=== PATIENT | female | born 1940 | race Caucasian/White ===

== ENCOUNTER 2016-07-20 09:04 | Emergency (ER) | payer BC ==
[~2016-07-20] VITALS: Ht 162.6 cm; Wt 62.0 kg
[~2016-07-20 09:04] MED LIST: VITAMINS
[2016-07-20 09:12] VITALS: TEMP 36.7; Ht 162.6 cm; Wt 62.0 kg
[2016-07-20] MEDS ORDERED: SODIUM CHLORIDE 0.9% 1000ML 250 ML IV STA (09:30)
[2016-07-20] MEDS ORDERED: SODIUM CHLORIDE 0.9% 1000ML 1,000 ML IV STA (09:30)
[2016-07-20] MEDS ORDERED: OPTIRAY 320 IV PRN (09:45)
[2016-07-20] MEDS ORDERED: MULTTAB58 PO (09:55)
--- NOTE | 2016-07-20 10:15 | EMERGENCY ROOM VISIT NOTE ---
History Report prepared by Lisa: Jet Mccollum Under the Supervision of: Dr. Teja Krueger M.D. First contact with patient: 09:22 Chief Complaint: SYNCOPE Stated Complaint: BACK INJURY-PAIN ON LEFT SIDE Nursing Triage Summary: Triage note: pt presents to triage via wheelchair. pt reports she she fell last night at approx 2230. pt reports "i don't know how i fell." pt reports left posterior rib pain. pt reports "i was standing up brushing my teeth and next thing i know i was in bed with an ice pack." female visitor with friend reports that pt has been confused since fall. pt answering all questions correctly in triage. History of Present Illness The patient is a 75 year old female who presents to the Emergency Room with complaints of persistent back pain that started 12 hours ago. The patient notes that she felt more fatigued than normal last night and went to bed early. The patient got up to brush her teeth when she fell down. Her friend heard a crash and went to check on her. She found her on the floor and the patient was confused. The patient doesn't remember the fall or why she fell. The patient's friend was able to get her up and back to bed. She complained of back pain and her friend noticed a scrape on her back. She denies chest pain, shortness of breath, numbness, weakness, dark or bloody stools, headache, abdominal pain or hip pain. Source of History: patient, friend Onset: 12 hours ago Position: back Timing: other (persistent) Associated Symptoms: + fatigue, No SOB, No abdominal pain, No chest pain, No headache, No numbness, No weakness Note: Other associated symptoms: confused and doesn't remember falling Denies: dark or bloody stools, hip pain Review of Systems See HPI for pertinent positives & negatives. A total of 10 systems reviewed and were otherwise negative. Past Medical & Surgical Surgical Problems: (1) H/O removal of cyst Old medical records were reviewed. Nurse's notes were reviewed and I agree with. Family History FHx: cancer Social History Smoking Status: Never Smoker Alcohol Use: none Housing Status: lives with friends Occupation Status: unemployed Current/Historical Medications Scheduled Multiple Vitamin (Multivitamin), 1 TAB PO DAILY Allergies Coded Allergies: No Known Allergies (Unverified , 07/20/16) Physical Exam Vital Signs Date Time Temp Pulse Resp B/P Pulse Ox O2 Delivery O2 Flow Rate FiO2 07/20/16 11:59 65 18 119/66 98 07/20/16 10:50 60 18 119/70 96 Room Air 07/20/16 10:04 61 07/20/16 09:12 36.7 64 18 105/67 95 Room Air Physical Exam General: Older female who appears in no acute distress complaining of left flank pain. HEENT: Normal cephalic atraumatic. Pupils are equal round and reactive to light. Sclerae anicteric. Extraocular movements are intact. Oropharynx is pink with moist mucous membranes. No swelling of the mouth lips or tongue. Neck: Supple with a midline trachea. No meningeal signs or stiffness, no JVD or bruits. No Stridor. Chest: Clear to auscultation bilaterally. No wheezes or rhonchi. No increased work of breathing. Heart: regular rate and rhythm. Abdomen: Soft nontender, nondistended without rebound guarding or rigidity. Extremities: No cyanosis clubbing or edema. No calf tenderness or assymetry Spine/Back. Tenderness to palpation to left flank along lower ribs, bruise is noted. Skin: Good turgor without rashes. Neurologic exam: Cranial nerves two through 12 are intact. Motor and sensation are intact and symmetrical throughout. Medical Decision & Procedures ER Provider Diagnostic Interpretation: Radiology results as stated below per my review and radiologist interpretation: CT HEAD WITHOUT CONTRAST (CT) CLINICAL HISTORY: Head trauma. Head pain COMPARISON STUDY: No previous studies for comparison. TECHNIQUE: Axial CT of the brain is performed from the vertex to the skull base. IV contrast was not administered for this examination. CT DOSE: 638.56 mGycm FINDINGS: No intra or extra-axial mass lesions are visualized. There is no CT evidence of acute cortical infarction. There is no evidence of midline shift. There is no acute hemorrhage. No calvarial fractures are visualized. There are patchy white matter hypodensities likely on a small vessel basis. There is no evidence of pathologic ventricular dilatation. There is no evidence of acute sinusitis. 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 IMPRESSION: No acute intracranial findings Electronically signed by: Mark Harris M.D. 07/20/2016 10:59 AM Dictated Date/Time: 07/20/2016 10:[address] SCAN OF THE CHEST WITH IV CONTRAST CLINICAL HISTORY: Trauma. Recent fall. COMPARISON STUDY: Chest x-ray dated 10/03/2005. TECHNIQUE: Following the IV administration of 93 cc of Optiray 320, CT scan of the thorax was performed from the thoracic inlet to the upper abdomen. Images are reviewed in the axial, sagittal, and coronal planes. IV contrast was administered without complication. The examination is degraded by streak artifact from the left arm which could not be elevated above the chest. CT DOSE: 592.94 mGycm FINDINGS: Thyroid: Imaged portions of the thyroid gland are normal in size and attenuation. Thoracic aorta: The thoracic aorta is normal in caliber and demonstrates standard 3-vessel arch anatomy. No dissection is seen. There is mild stenosis in the left subclavian artery. Pulmonary vasculature: The pulmonary trunk is normal in caliber. There are no filling defects identified in the central pulmonary vessels to indicate pulmonary embolus. Note that this examination was not protocoled for evaluation of the pulmonary arteries. Heart: The heart is top normal in size and configuration, and without pericardial effusion. Lungs and pleural spaces: Evaluation of the lung parenchyma is modestly degraded by motion artifact. There is no airspace consolidation, pleural effusion, or pneumothorax. Dependent atelectasis is observed. The trachea and central airways are clear. There are scattered calcified granulomas. A 3 mm pleural-based nodule in the right middle lobe as seen on image #194. Mediastinum: There is no mediastinal hematoma or lymphadenopathy. Marian: Clear. Axillae: There is no axillary lymphadenopathy. Upper abdomen: A 2 cm cyst is noted in the right lobe of the liver. A tiny hiatal hernia is identified. Partially visualized upper abdominal viscera is otherwise within normal limits. See report of abdominal CT performed concurrently for detailed intra-abdominal findings. Skeletal structures: The Skeletal structures are osteopenic. Mild degenerative change is noted throughout the thoracic spine. The bony thorax appears intact. No lytic or blastic bony lesions are seen. IMPRESSION: 1. There is no acute posttraumatic intrathoracic body. 2. There is no airspace consolidation or pleural effusion. 3. There is a 3 mm pleural-based nodule in the right middle lobe. This is pathologically indeterminant but of low suspicion and can be followed if clinically warranted. See below. 4. Additional findings as above. Please refer to below summary of Fleischner criteria recommendations for follow-up of incidental CT nodules (H Alejandra, Guidelines for management of small pulmonary nodules detected on CT scans: A statement from the Fleischner Society, Radiology 237: [id number].) SOLID NODULES Solitary nodule size: <6 mm * low risk patients: no follow-up needed * high risk patients: optional CT at 12 months Solitary nodule size: 6-8 mm * low risk patients: follow-up at 6-12 months, then consider further follow-up at 18-24 months * high risk patients: initial follow-up CT at 6-12 months and then at 18-24 months if no change Solitary nodule size: >8 mm * either low or high risk patients - consider follow-up CT at 3 months, and/or CT-PET, and/or biopsy Multiple nodules size: <6 mm * low risk patients: no routine follow-up * high risk patients: optional CT at 12 months Multiple nodules size: 6-8 mm * low risk patients: follow-up at 3-6 months, then consider further follow-up at 18-24 months * high risk patients: follow-up at 3-6 months, then at 18-24 months if no change Multiple nodules size: >8 mm * low risk patients: follow-up at 3-6 months, then consider further follow-up at 18-24 months * high risk patients: follow-up at 3-6 months, then at 18-24 months if no change Note: newly detected indeterminate nodule in persons 35 years of age or older. * low risk patients: minimal or absent history of smoking and/or other known risk factors * high risk patients: history of smoking or of other known risk factors (e.g. first degree relative with lung cancer, or exposure to asbestos, radon, uranium) * if a nodule up to 8 mm is partly solid or is ground glass further follow-up is required after 24 months to exclude possible slow growing adenocarcinoma (YESENIA) SUBSOLID NODULES Solitary pure ground-glass nodule * nodule size <6 mm - no CT follow-up required * nodule size >=6 mm - follow-up CT at 6-12 months, then every 2 years until 5 years Solitary part-solid nodule * nodule size <6 mm - no CT follow-up required * nodule size >=6 mm - follow-up CT at 3-6 months. If unchanged, and solid component remains <6 mm, then annual follow-up for 5 years Multiple subsolid nodules * nodule size <6 mm - follow-up CT at 3-6 months, consider further follow-up at 2 and 4 years if stable * nodule size >=6 mm - follow-up CT at 3-6 months, subsequent management based on the most suspicious nodule(s) Electronically signed by: Lopez Keller M.D. 07/20/2016 11:02 AM Dictated Date/Time: 07/20/2016 10:[address] OF THE ABDOMEN AND PELVIS WITH CONTRAST CLINICAL HISTORY: Left flank pain and back pain following fall. COMPARISON STUDY: None. TECHNIQUE: Following IV administration of 93 mL of Optiray-320, axial images of the abdomen and pelvis were obtained from the lung bases to the proximal femurs. Images were reviewed in the axial, sagittal, and coronal planes. IV contrast was administered without complication. FINDINGS: The chest will be reported separately. However, visualized portions of the lower chest demonstrate acute nondisplaced fractures of the posterior left 10th and 11th ribs. There is no acute lumbar spine or pelvic fracture. 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 Note is made of a right hepatic lobe cyst. There is no evidence of traumatic injury to the liver, spleen, adrenal glands, kidneys or pancreas. The caliber and wall thickness of small and large bowel are normal. There is no hemoperitoneum or pneumoperitoneum. There is a moderate amount of stool within the colon. There is no free fluid. IMPRESSION: 1. Acute nondisplaced fractures of the posterior left 10th and 11th ribs. 2. No acute traumatic findings within the abdomen or pelvis. Electronically signed by: Taras Millan M.D. 07/20/2016 11:04 AM Dictated Date/Time: 07/20/2016 10:57 AM Laboratory Results 07/20/16 10:00 Red Blood Count 4.98, Mean Corpuscular Volume 87.8, Mean Corpuscular Hemoglobin 30.3, Mean Corpuscular Hemoglobin Concent 34.6, Mean Platelet Volume 9.8, Neutrophils (%) (Auto) 74.0, Lymphocytes (%) (Auto) 17.7, Monocytes (%) (Auto) 7.9, Eosinophils (%) (Auto) 0.2, Basophils (%) (Auto) 0.2, Neutrophils # (Auto) 3.01, Lymphocytes # (Auto) 0.72, Monocytes # (Auto) 0.32, Eosinophils # (Auto) 0.01, Basophils # (Auto) 0.01 07/20/16 10:00 Test 07/20/16 10:00 07/20/16 10:02 07/20/16 10:05 White Blood Count 4.07 K/uL (4.8-10.8) Red Blood Count 4.98 M/uL (4.2-5.4) Hemoglobin 15.1 g/dL (12.0-16.0) Hematocrit 43.7 % (37-47) Mean Corpuscular Volume 87.8 fL (80-100) Mean Corpuscular Hemoglobin 30.3 pg (25-34) Mean Corpuscular Hemoglobin Concent 34.6 g/dl (32-36) Platelet Count 151 K/uL (130-400) Mean Platelet Volume 9.8 fL (7.4-10.4) Neutrophils (%) (Auto) 74.0 % Lymphocytes (%) (Auto) 17.7 % Monocytes (%) (Auto) 7.9 % Eosinophils (%) (Auto) 0.2 % Basophils (%) (Auto) 0.2 % Neutrophils # (Auto) 3.01 K/uL (1.4-6.5) Lymphocytes # (Auto) 0.72 K/uL (1.2-3.4) Monocytes # (Auto) 0.32 K/uL (0.11-0.59) Eosinophils # (Auto) 0.01 K/uL (0-0.5) Basophils # (Auto) 0.01 K/uL (0-0.2) RDW Standard Deviation 41.6 fL (36.4-46.3) RDW Coefficient of Variation 13.1 % (11.5-14.5) Immature Granulocyte % (Auto) 0.0 % Immature Granulocyte # (Auto) 0.00 K/uL (0.00-0.02) Prothrombin Time 10.9 SECONDS (9.0-12.0) Prothromb Time International Ratio 1.0 (0.9-1.1) Activated Partial Thromboplast Time 24.3 SECONDS (21.0-31.0) Partial Thromboplastin Ratio 0.9 Est Creatinine Clear Calc Drug Dose 43.7 ml/min Estimated GFR () 65.5 Estimated GFR (Non- 56.5 BUN/Creatinine Ratio 15.8 (10-20) Calcium Level 8.9 mg/dl (8.5-10.1) Total Bilirubin 0.5 mg/dl (0.2-1) Direct Bilirubin 0.1 mg/dl (0-0.2) Aspartate Amino Transf (AST/SGOT) 21 U/L (15-37) Alanine Aminotransferase (ALT/SGPT) 17 U/L (12-78) Alkaline Phosphatase 59 U/L (45-117) Total Protein 7.0 gm/dl (6.4-8.2) Albumin 3.4 gm/dl (3.4-5.0) Lipase 157 U/L (73-393) Lyme Disease IgG Antibody NEG (NEG) Lyme Disease IgM Antibody NEG (NEG) Bedside Troponin I 0.000 ng/ml (0-0.045) ED-Pbn-K-Type Natriuretic Peptide 171 pg/ml (0-900) Bedside Hemoglobin 13.9 g/dl (12.0-16.0) Bedside Hematocrit 41 % (37-47) Bedside Sodium 140 mEq/L (135-144) Bedside Potassium 4.1 mEq/L (3.3-5.0) Bedside Chloride 105 mEq/L (101-112) Bedside Total CO2 23 mEq/l (24-31) Anion Gap 18.0 mmol/L (16-25) Bedside Blood Urea Nitrogen 15 mg/dl (7-18) Bedside Creatinine 0.9 mg/dl (0.6-1.3) Bedside Glucose (other) 108 mg/dl (70-99) Bedside Ionized Calcium (Harmony) 1.17 mmol/l (1.12-1.32) Laboratory studies as stated above per my review. Medications Administered Medications (Trade) Dose Ordered Sig/Kira Route Start Time Stop Time Status Last Admin Dose Admin Sodium Chloride (Nss 1000ml) 1,000 ml @ 100 mls/hr Q10H STAT IV 07/20/16 09:30 07/20/16 12:29 DC 07/20/16 10:04 100 MLS/HR ED Course 0923: Past medical records reviewed. The patient was evaluated in room A4, and a complete history and physical examination were performed. 929: Ordered NSS 1000 ml @ 100 mls/hr IV, NSS 250 ml @ 999 mls/hr IV. 1145: At this time, I reevaluated the patient and she refuses admission and pain medication at this time. She wants to go home. Upon reevaluation, the patient is resting. I discussed the results and treatment plan with her. She verbalized agreement of the treatment plan. The patient was discharged home. Medical Decision Differential diagnoses include rib fracture, lumbar spine fracture, contusion, syncope, arrhythmia, anemia, infection, or electrolyte or metabolic abnormality. This patient comes in as described above. She had a fall last night. She can' t quite explain that she thinks she fell asleep. I told him concerned about syncope or arrhythmia. She is never anything quite like this before she one other spell in the past. She is very little reluctant to get any health care. IV access established and multiple blood testing was obtained as well as EKG. EKG does not suggest an acute cardiac event or arrhythmia. Cardiac enzymes are not elevated. She's had no acute electrode or metabolic abnormalities. I did a CAT scan of her head which was unremarkable. CAT scan of the chest and abdomen show rib fractures of #11 and 12. These are nondisplaced. No other injuries. I talked to the patient and her friend at length. Given this episode last night, I'm concerned she could have an arrhythmia or cardiac event . I do think she needs to be admitted for further treatment and evaluation. She is adamant that she does not want to stay in the hospital. She does anyone take pain medication. She says wants to go home exercise. She says she is not used to being sick and does not like hospitals. She understands my concerns however. I did recommend that she use ibuprofen 400 mg every 6 hours and take with food. Return if: increasing pain, worsening of symptoms, fever or chills, any new problems or concerns and follow up with her doctor in the next 1-2 days for recheck.. Impression Primary Impression: Syncope Additional Impression: Rib fractures Scribe Attestation The scribe's documentation has been prepared under my direction and personally reviewed by me in its entirety. I confirm that the note above accurately reflects all work, treatment, procedures, and medical decision making performed by me. Departure Information Dispostion Home / Self-Care Referrals Evie Morales DO (PCP) Forms HOME CARE DOCUMENTATION FORM, IMPORTANT VISIT INFORMATION Patient Instructions [facility] Additional Instructions Rest. Drink plenty of fluids. Use ibuprofen 400 mg every 6 hours as needed, take with food May also use Tylenol/acetaminophen a maximum 650 mg every 6 hours Do not take with any medications that contain acetaminophen/Tylenol Return if: Increasing pain, worsening of symptoms, fever or chills, any new problems or concerns Problem Qualifiers
[2016-07-20 10:18] LABS: ISTAT CREATININE 0.9 mg/dl (0.6-1.3); ISTAT HEMOGLOBIN 13.9 g/dl (12.0-16.0); ISTAT IONIZED CALCIUM 1.17 mmol/l (1.12-1.32)
[2016-07-20 10:18] LABS: BASO % 0.2 %; BASO ABS # 0.01 K/uL (0-0.2); COMPLETE YES; EOS % 0.2 %; HEMATOCRIT 43.7 % (37-47); LYMPH % 17.7 %; LYMPH ABS # 0.72 K/uL (1.2-3.4); MEAN CELL VOLUME 87.8 fL (80-100); MEAN CORPUSCULAR HEMOGLOBIN 30.3 pg (25-34); MEAN CORPUSCULAR HGB CONC 34.6 g/dl (32-36); MEAN PLATELET VOLUME 9.8 fL (7.4-10.4); MONO % 7.9 %; PLATELET COUNT 151 K/uL (130-400); RED BLOOD COUNT 4.98 M/uL (4.2-5.4); WHITE BLOOD COUNT 4.07 K/uL (4.8-10.8)
[2016-07-20 10:31] LABS: PARTIAL THROMBOPLASTIN RATIO 0.9; PROTHROMBIN TIME (PATIENT) 10.9 SECONDS (9.0-12.0)
[2016-07-20 10:44] LABS: BUN/CREATININE RATIO 15.8 (10-20); CALCIUM 8.9 mg/dl (8.5-10.1); CREATININE 0.99 mg/dl (0.60-1.20); POTASSIUM 4.2 mmol/L (3.5-5.1)
--- NOTE | 2016-07-20 11:01 | DIAGNOSTIC IMAGING REPORT ---
CT HEAD WITHOUT CONTRAST (CT) CLINICAL HISTORY: Head trauma. Head pain COMPARISON STUDY: No previous studies for comparison. TECHNIQUE: Axial CT of the brain is performed from the vertex to the skull base. IV contrast was not administered for this examination. CT DOSE: 638.56 mGycm FINDINGS: No intra or extra-axial mass lesions are visualized. There is no CT evidence of acute cortical infarction. There is no evidence of midline shift. There is no acute hemorrhage. No calvarial fractures are visualized. There are patchy white matter hypodensities likely on a small vessel basis. There is no evidence of pathologic ventricular dilatation. There is no evidence of acute sinusitis. 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 IMPRESSION: No acute intracranial findings Electronically signed by: Mark Harris M.D. 07/20/2016 10:59 AM Dictated Date/Time: 07/20/2016 10:58 AM
--- NOTE | 2016-07-20 11:04 | DIAGNOSTIC IMAGING REPORT ---
CT SCAN OF THE CHEST WITH IV CONTRAST CLINICAL HISTORY: Trauma. Recent fall. COMPARISON STUDY: Chest x-ray dated 10/03/2005. TECHNIQUE: Following the IV administration of 93 cc of Optiray 320, CT scan of the thorax was performed from the thoracic inlet to the upper abdomen. Images are reviewed in the axial, sagittal, and coronal planes. IV contrast was administered without complication. The examination is degraded by streak artifact from the left arm which could not be elevated above the chest. CT DOSE: 592.94 mGycm FINDINGS: Thyroid: Imaged portions of the thyroid gland are normal in size and attenuation. Thoracic aorta: The thoracic aorta is normal in caliber and demonstrates standard 3-vessel arch anatomy. No dissection is seen. There is mild stenosis in the left subclavian artery. Pulmonary vasculature: The pulmonary trunk is normal in caliber. There are no filling defects identified in the central pulmonary vessels to indicate pulmonary embolus. Note that this examination was not protocoled for evaluation of the pulmonary arteries. Heart: The heart is top normal in size and configuration, and without pericardial effusion. Lungs and pleural spaces: Evaluation of the lung parenchyma is modestly degraded by motion artifact. There is no airspace consolidation, pleural effusion, or pneumothorax. Dependent atelectasis is observed. The trachea and central airways are clear. There are scattered calcified granulomas. A 3 mm pleural-based nodule in the right middle lobe as seen on image #194. Mediastinum: There is no mediastinal hematoma or lymphadenopathy. Marian: Clear. Axillae: There is no axillary lymphadenopathy. Upper abdomen: A 2 cm cyst is noted in the right lobe of the liver. A tiny hiatal hernia is identified. Partially visualized upper abdominal viscera is otherwise within normal limits. See report of abdominal CT performed concurrently for detailed intra-abdominal findings. Skeletal structures: The Skeletal structures are osteopenic. Mild degenerative change is noted throughout the thoracic spine. The bony thorax appears intact. No lytic or blastic bony lesions are seen. IMPRESSION: 1. There is no acute posttraumatic intrathoracic body. 2. There is no airspace consolidation or pleural effusion. 3. There is a 3 mm pleural-based nodule in the right middle lobe. This is pathologically indeterminant but of low suspicion and can be followed if clinically warranted. See below. 4. Additional findings as above. Please refer to below summary of Fleischner criteria recommendations for follow-up of incidental CT nodules (Chetna Roberts, Guidelines for management of small pulmonary nodules detected on CT scans: A statement from the Fleischner Society, Radiology 237: [id number].) SOLID NODULES Solitary nodule size: <6 mm * low risk patients: no follow-up needed * high risk patients: optional CT at 12 months Solitary nodule size: 6-8 mm * low risk patients: follow-up at 6-12 months, then consider further follow-up at 18-24 months * high risk patients: initial follow-up CT at 6-12 months and then at 18-24 months if no change Solitary nodule size: >8 mm * either low or high risk patients - consider follow-up CT at 3 months, and/or CT-PET, and/or biopsy Multiple nodules size: <6 mm * low risk patients: no routine follow-up * high risk patients: optional CT at 12 months Multiple nodules size: 6-8 mm * low risk patients: follow-up at 3-6 months, then consider further follow-up at 18-24 months * high risk patients: follow-up at 3-6 months, then at 18-24 months if no change Multiple nodules size: >8 mm * low risk patients: follow-up at 3-6 months, then consider further follow-up at 18-24 months * high risk patients: follow-up at 3-6 months, then at 18-24 months if no change Note: newly detected indeterminate nodule in persons 35 years of age or older. * low risk patients: minimal or absent history of smoking and/or other known risk factors * high risk patients: history of smoking or of other known risk factors (e.g. first degree relative with lung cancer, or exposure to asbestos, radon, uranium) * if a nodule up to 8 mm is partly solid or is ground glass further follow-up is required after 24 months to exclude possible slow growing adenocarcinoma (YESENIA) SUBSOLID NODULES Solitary pure ground-glass nodule * nodule size <6 mm - no CT follow-up required * nodule size >=6 mm - follow-up CT at 6-12 months, then every 2 years until 5 years Solitary part-solid nodule * nodule size <6 mm - no CT follow-up required * nodule size >=6 mm - follow-up CT at 3-6 months. If unchanged, and solid component remains <6 mm, then annual follow-up for 5 years Multiple subsolid nodules * nodule size <6 mm - follow-up CT at 3-6 months, consider further follow-up at 2 and 4 years if stable * nodule size >=6 mm - follow-up CT at 3-6 months, subsequent management based on the most suspicious nodule(s) Electronically signed by: Lopez Keller M.D. 07/20/2016 11:02 AM Dictated Date/Time: 07/20/2016 10:53 AM
--- NOTE | 2016-07-20 11:07 | DIAGNOSTIC IMAGING REPORT ---
CT OF THE ABDOMEN AND PELVIS WITH CONTRAST CLINICAL HISTORY: Left flank pain and back pain following fall. COMPARISON STUDY: None. TECHNIQUE: Following IV administration of 93 mL of Optiray-320, axial images of the abdomen and pelvis were obtained from the lung bases to the proximal femurs. Images were reviewed in the axial, sagittal, and coronal planes. IV contrast was administered without complication. FINDINGS: The chest will be reported separately. However, visualized portions of the lower chest demonstrate acute nondisplaced fractures of the posterior left 10th and 11th ribs. There is no acute lumbar spine or pelvic fracture. 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 Note is made of a right hepatic lobe cyst. There is no evidence of traumatic injury to the liver, spleen, adrenal glands, kidneys or pancreas. The caliber and wall thickness of small and large bowel are normal. There is no hemoperitoneum or pneumoperitoneum. There is a moderate amount of stool within the colon. There is no free fluid. IMPRESSION: 1. Acute nondisplaced fractures of the posterior left 10th and 11th ribs. 2. No acute traumatic findings within the abdomen or pelvis. Electronically signed by: Taras Millan M.D. 07/20/2016 11:04 AM Dictated Date/Time: 07/20/2016 10:57 AM
[2016-07-20 11:20] LABS: LYME DISEASE AB IGM NEG (NEG)
[2016-07-20 11:23] LABS: LYME DISEASE AB IGG NEG (NEG)
[2016-07-20 11:59] VITALS: BP 119/66; PULSE 65; O2SAT 98
== END 2016-07-20 12:01 | disposition home or self-care (01) ==
LOC: C.EDB 09:05 → C.EDA 12:01
DX: R55 Syncope and collapse (principal); S22.42XA Multiple fractures of ribs, left side, initial encounter for closed fracture; W18.30XA Fall on same level, unspecified, initial encounter; Y93.E8 Activity, other personal hygiene; Y92.002 Bathroom of unspecified non-institutional (private) residence as the place of occurrence of the external cause; S30.1XXA Contusion of abdominal wall, initial encounter; R91.1 Solitary pulmonary nodule

== ENCOUNTER 2016-07-31 06:51 | Emergency (ER) | payer BC ==
[~2016-07-31] VITALS: Ht 162.6 cm; Wt 61.5 kg
[~2016-07-31 06:51] MED LIST changes: +MULTTAB58 PO; -VITAMINS
[2016-07-31 06:53] VITALS: TEMP 36.4; Ht 162.6 cm; Wt 61.5 kg
--- NOTE | 2016-07-31 07:08 | EMERGENCY ROOM VISIT NOTE ---
ED Visit Note First contact with patient: 06:58 I have seen and examined this patient with Power Andrew and generally agree with the treatment plan as discussed. Problem List Surgical Problems: (1) H/O removal of cyst Status: Resolved Current/Historical Medications Scheduled Multiple Vitamin (Multivitamin), 1 TAB PO DAILY Allergies Coded Allergies: No Known Allergies (Unverified , 07/20/16) Vital Signs Date Time Temp Pulse Resp B/P Pulse Ox O2 Delivery O2 Flow Rate FiO2 07/31/16 06:53 36.4 62 18 115/71 96 Room Air Departure Information Referrals Eduar Lopez (PCP) Patient Instructions My [facility]
--- NOTE | 2016-07-31 07:15 | EMERGENCY ROOM VISIT NOTE ---
History First contact with patient: 06:58 Chief Complaint: RIB PAIN Stated Complaint: RIB PAIN History of Present Illness The patient is a 75 year old female who presents to the Emergency Room via private vehicle accompanied by female with complaints of "rib pain". The patient states that she was seen here recently a few weeks ago for a fall, and was diagnosed with left sided nondisplaced rib fractures. She states that she had been doing well since that time, and is in very little pain until she woke up this morning with worsening pain in the same region as previously. She rates the pain as a 5-7/10, and is worse with movement. She does feel nauseous , but does when she is in pain. She denies any abdominal pain, or urinary symptoms. She denies any new trauma or falls. She denies any chest pain or shortness of breath. Review of Systems A complete 10-point Review of Systems was discussed with the patient, with pertinent positives and negatives listed in the History of Present Illness. All remaining Review of Systems questions can be considered negative unless otherwise specified. Past Medical/Surgical History Surgical Problems: (1) H/O removal of cyst Family History FHx: cancer Social History Smoking Status: Never Smoker Alcohol Use: none Housing Status: lives with friends Occupation Status: unemployed Current/Historical Medications Scheduled Ascorbic Acid (Ascorbic Acid), Unknown Dose PO DAILY B-Complex Vitamins (Vitamin B Complex), 1 TAB PO DAILY Cholecalciferol (Vitamin D3), Unknown Dose PO DAILY Coenzyme Q10 (Ubidecarenone) (Co Q-10), 1 CAP PO DAILY Fish Oil ([place]-3), 1 CAP PO DAILY Garlic (Garlic), Unknown Dose PO DAILY Lysine Hcl (Lysine), Unknown Dose PO DAILY Selenium-Yeast (Selenium), 1 TAB PO DAILY Vitamin E (E 1000), Unknown Dose PO DAILY Allergies Uncoded Allergies: NARCOTIC ANALGESICS (Adverse Reaction, Unknown, DELIRIUM, 07/31/16) Physical Exam Vital Signs Date Time Temp Pulse Resp B/P Pulse Ox O2 Delivery O2 Flow Rate FiO2 07/31/16 06:53 36.4 62 18 115/71 96 Room Air Physical Exam VITAL SIGNS - Vital signs and nursing notes were reviewed. Patient is afebrile , normotensive, non-tachycardic and is saturating well on room air 96%. GENERAL -75-year-old female appearing her stated age who is in no acute distress. Communicates well with provider and answers questions appropriately. SKIN - Without rashes. There is a small abrasion noted to the posterior superior on the left lumbar spine overlying the ribs. HEAD - NC/AT. EYES - Sclera anicteric. Palpebral conjunctiva pink and moist with no injection noted. EARS - No deformities of external structures noted on gross examination bilaterally. NOSE - Midline and without cyanosis. No epistaxis or purulent drainage noted. Septum midline without deviation or septal hematoma noted. MOUTH/OROPHARYNX - Without perioral cyanosis. LUNGS - Chest wall symmetric without accessory muscle use, intercostals retractions, or central cyanosis. Normal vesicular breath sounds CTA B/L. No wheezes, rales, or rhonchi appreciated. CARDIAC - RRR with S1/S2. No murmur, rubs, or gallops appreciated. MUSCULOSKELETAL: There is tenderness to palpation overlying the left inferior posterior ribs. ABDOMEN - Abdominal contour without pulsations or visible masses. BS normoactive all four quadrants. No tenderness, palpable masses, hepatosplenomegaly, or ascites noted. EXTREMITIES - No clubbing or peripheral cyanosis. No pretibial edema present. +5 /5 strength noted in UE/LE bilaterally. NEUROLOGIC - Cranial nerves II through XII grossly intact. PSYCH - Pt is very pleasant and interacts well with examiner. Medical Decision & Procedures ER Provider Diagnostic Interpretation: LEFT RIBS UNILATERAL WITH PA CHEST CLINICAL HISTORY: Left rib pain COMPARISON STUDY: No previous studies for comparison. FINDINGS: The erect chest reveals no pneumothorax. There is minor blunting of the costophrenic angles. There is no lobar consolidation. No acute rib fractures are visualized. There is a calcification adjacent to the humeral head, likely secondary to calcific tendinitis. IMPRESSION: 1. No acute rib fractures identified 2. No evidence of pneumothorax 3. Minor blunting of the lateral costophrenic angle 4. Probable calcific tendinitis in the left shoulder Medical Decision Patient was seen and evaluated as above. After obtaining a thorough history and physical examination the patient wanted to pursue a conservative approach, with least invasive modalities. Radiograph was obtained of the left ribs. This is to evaluate for any change in status of the previous nondisplaced rib fractures. I also asked if the patient provided urine, as the left posterior inferior ribs are overlying the kidneys, and wanted to rule out any urinary or emergent kidney etiologies. The patient stated that she had just urinated, when up and brought a sample at this time. The rib series was pursued. Rib series revealed small blunting of the costophrenic angle, no displacement of the rib fracture previously. Patient noted that she was feeling much better, and just wanted to know if the rib at shift. I informed her that at this time it does not appear to have shifted or to come misalignment. The urine was canceled. The patient appeared to be stable at this time, with no other complaints. The patient was also examined by my attending. The patient was educated upon the importance of follow-up, educated upon incidental findings of the x-ray, educated upon worrisome symptoms which to return, and was discharged home in good condition. I suspect that her pain today is likely secondary to irritation of the previous fracture site. In the evaluation and treatment of this patient, the following differential diagnoses were considered: Rib Fracture, Rib Contusion, Hemothorax, Pneumothorax , Pneumonia, Pleural Effusion. Impression Primary Impression: Rib pain on left side Departure Information Dispostion Home / Self-Care Condition GOOD Referrals Edura Lopez (PCP) Patient Instructions My [facility] Additional Instructions You have been treated in the Emergency Department for Rib pain on the left side. For pain control, you can use the following [id number] medicines: - Regular strength (325mg/tab) Tylenol (acetaminophen) 2 tabs every 4-6 hours as needed. Do not exceed 12 tablets in a 24 hour period. Avoid taking more than 3 grams (3000 mg) of Tylenol per day. This includes any other sources of acetaminophen you may take on a regular basis. - Regular strength (200 mg/tab) Advil (ibuprofen) 1-2 tabs every 4-6 hours as needed. Do not exceed a dose of 3200 mg per day. If this is an acute injury, ice can be applied to the area of pain for the first 3 days to help decrease pain and inflammation. After the first 3 days, a heating pad can be used over the area for continued soothing relief. To minimize your discomfort, you can hug a pillow while coughing or sneezing. Additionally, you should continue to force yourself to take nice, deep breaths. Full expansion of the lungs is necessary to prevent the accumulation of fluid in the lung tissue and development of pneumonia. You should schedule a follow-up appointment in 2-3 days with your Primary Care Provider for further evaluation and treatment of your rib pain. Return to the Emergency Department if your current symptoms worsen despite treatment course outlined above, or if you develop any of the following symptoms : intractable pain despite aforementioned treatment course, development of a wet cough, bloody cough, fever, chills, or increased shortness of breath. Please return to the emergency department with any new/concerning symptoms.
[2016-07-31] MEDS ORDERED: ASCO250T5 PO (07:26)
[2016-07-31] MEDS ORDERED: LYSI100010 PO (07:26)
[2016-07-31] MEDS ORDERED: CHOL1000 PO (07:26)
[2016-07-31] MEDS ORDERED: GARL1TAB8 PO (07:26)
[2016-07-31] MEDS ORDERED: VITA1CAP4 PO (07:26)
[2016-07-31] MEDS ORDERED: COEN75CA PO (07:26)
[2016-07-31] MEDS ORDERED: B-COTAB18 PO (07:26)
[2016-07-31] MEDS ORDERED: OMEG10007 PO (07:26)
[2016-07-31] MEDS ORDERED: SELE1TAB5 PO (07:26)
--- NOTE | 2016-07-31 07:56 | DIAGNOSTIC IMAGING REPORT ---
LEFT RIBS UNILATERAL WITH PA CHEST CLINICAL HISTORY: Left rib pain COMPARISON STUDY: No previous studies for comparison. FINDINGS: The erect chest reveals no pneumothorax. There is minor blunting of the costophrenic angles. There is no lobar consolidation. No acute rib fractures are visualized. There is a calcification adjacent to the humeral head, likely secondary to calcific tendinitis. IMPRESSION: 1. No acute rib fractures identified 2. No evidence of pneumothorax 3. Minor blunting of the lateral costophrenic angle 4. Probable calcific tendinitis in the left shoulder Electronically signed by: Mark Harris M.D. 07/31/2016 7:54 AM Dictated Date/Time: 07/31/2016 7:52 AM
[2016-07-31 08:35] VITALS: BP 111/69; PULSE 67; O2SAT 96
== END 2016-07-31 08:35 | disposition home or self-care (01) ==
LOC: C.EDB 06:53
DX: R07.81 Pleurodynia (principal); Z80.9 Family history of malignant neoplasm, unspecified; Z79.899 Other long term (current) drug therapy; W19.XXXA Unspecified fall, initial encounter

== ENCOUNTER 2017-08-10 10:57 | Emergency (ER) | payer BC ==
[~2017-08-10] VITALS: Ht 160 cm; Wt 64.5 kg
[~2017-08-10 10:57] MED LIST changes: +ASCO250T5 PO; +B-COTAB18 PO; +CHOL1000 PO; +COEN75CA PO; +GARL1TAB8 PO; +LYSI100010 PO; -MULTTAB58 PO; +OMEG10007 PO; +SELE1TAB5 PO; +VITA1CAP4 PO
[2017-08-10 11:00] VITALS: TEMP 36.7; Ht 160 cm; Wt 64.5 kg
--- NOTE | 2017-08-10 11:58 | EMERGENCY ROOM VISIT NOTE ---
History Report prepared by Lisa: Roland Toth Under the Supervision of: Dr. Angel Melgar M.D. First contact with patient: 11:45 Chief Complaint: BACK PAIN Stated Complaint: PAIN IN L LEG AND LOWER BACK History of Present Illness The patient is a 76 year old female who presents to the Emergency Room with complaints of worsening pain in her left lower back that she has been experiencing for the past 5 months. The patient states that her pain has acutely worsened over the past 3 days. Her pain is worsened by bending over, and she describes this pain as "excruciating." She is now feeling the pain radiate all the way down into her left foot, which is new over the past two days. She denies losing control of her bowel. Source of History: patient Onset: 5 months, 3 day acutely worsened Position: back (Left lower back) Symptom Intensity: excruciating Timing: worsening Modifying Factors (Worsening): other (Bending over) Associated Symptoms: + urinary symptoms (No urinary incontinence), No diarrhea (No loss of bowel) Review of Systems See HPI for pertinent positives & negatives. A total of 10 systems reviewed and were otherwise negative. Past Medical & Surgical Surgical Problems: (1) H/O removal of cyst Family History FHx: cancer Social History Smoking Status: Never Smoker Alcohol Use: none Housing Status: lives with friends Occupation Status: unemployed Current/Historical Medications Scheduled Ascorbic Acid (Ascorbic Acid), Unknown Dose PO DAILY B-Complex Vitamins (Vitamin B Complex), 1 TAB PO DAILY Cholecalciferol (Vitamin D3), Unknown Dose PO DAILY Coenzyme Q10 (Ubidecarenone) (Co Q-10), 1 CAP PO DAILY Garlic (Garlic), Unknown Dose PO DAILY Lidocaine (Lidocaine), 5 % TD DAILY Lysine Hcl (Lysine), Unknown Dose PO DAILY Selenium-Yeast (Selenium), 1 TAB PO DAILY Vitamin E (E 1000), Unknown Dose PO DAILY Allergies Uncoded Allergies: NARCOTIC ANALGESICS (Adverse Reaction, Unknown, DELIRIUM, 07/31/16) Physical Exam Vital Signs Date Time Temp Pulse Resp B/P (MAP) Pulse Ox O2 Delivery O2 Flow Rate FiO2 08/10/17 13:00 50 16 138/82 98 Room Air 08/10/17 11:00 36.7 61 18 139/87 97 Room Air Physical Exam GENERAL: Awake, alert, well-appearing, in no acute distress HENT: Normocephalic, atraumatic. Oropharynx unremarkable. EYES: Normal conjunctiva. Sclera non-icteric. NECK: Supple. No nuchal rigidity. FROM. No JVD. RESPIRATORY: Clear to auscultation. CARDIAC: Regular rate, normal rhythm. Extremities warm and well perfused. Pulses equal. ABDOMEN: Soft, non-distended. No tenderness to palpation. No rebound or guarding. No masses. RECTAL: Deferred. MUSCULOSKELETAL: Chest examination reveals no tenderness. The back is symmetrical on inspection without obvious abnormality. There is no CVA tenderness to palpation. No joint edema. LOWER EXTREMITIES: Calves are equal size bilaterally and non-tender. No edema. No discoloration. NEURO: Normal sensorium. No sensory or motor deficits noted. NO saddle anesthesia, no loss of bladder/bowel control. Can walk on heels and toes. SKIN: No rash or jaundice noted. Medical Decision & Procedures ER Provider Diagnostic Interpretation: Radiology results as stated below per my review and radiologist interpretation: LUMBAR SPINE WITHOUT CLINICAL HISTORY: 76 years-old Female presenting with Pt c/o left leg sciatica. TECHNIQUE: Multidetector CT of the lumbar spine was performed without the use of intravenous contrast. IV contrast: None. A dose lowering technique was used consistent with the principles of ALARA (as low as reasonably achievable). COMPARISON: None. CT DOSE (mGy.cm): The estimated cumulative dose is 881.29 mGy.cm. 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 Normal lumbar lordosis. Prominent Schmorl's node noted at the anterior aspect of the superior endplate of L2. Trace anterolisthesis of L3 on L4. Vertebral bodies otherwise maintain normal height and alignment. Intervertebral disc heights preserved. Facet arthropathy evident most significant in the lower lumbar spine. Bony spurring as result of facet arthropathy results in mild narrowing of the bilateral neural foramina at L3-4 and L4-5. Soft tissue primarily narrows the neural foramina at L5-S1 greater on the right. Allowing for limitations of CT, no evidence of soft tissue narrowing of the spinal canal. No osseous narrowing of spinal canal. No acute fracture or acute subluxation. Visualized portion of the sacrum intact. Incidental note made of a sacral dural ectasia. Remaining visualized soft tissues demonstrate atherosclerosis of the normal caliber abdominal aorta. IMPRESSION: 1. No acute osseous injury of the lumbar spine. 2. Mild multilevel degenerative changes. Electronically signed by: Nakul Gerardo M.D. 08/10/2017 12:40 PM Dictated Date/Time: 08/10/2017 12:36 PM PELVIS NO IV/ORAL CONT (CT) HISTORY: 76 years-old Female Pt c/o left leg weakness acute left leg pain and weakness COMPARISON: CT abdomen and pelvis 07/20/2016 TECHNIQUE: Multiple axial CT images of the pelvis were obtained without the use of IV contrast. A dose lowering technique was used consistent with the principals of JOHNIE. FINDINGS: Severe facet arthropathy about the imaged lower lumbar spine. Mild to moderate degenerative changes about the SI joints. No sacral insufficiency fracture. No pelvic ring fracture. There are moderate degenerative changes about the bilateral femoral acetabular joints without acute fracture or dislocation. The bones appear mildly demineralized. There are suggested large perineural root sleeve cysts about the sacrum with bony remodeling changes. Moderate atherosclerosis of the abdominal aorta and iliac vasculature. Moderate volume of formed stool throughout the colon. The appendix appears normal. Soft tissues are within normal limits. No large hematoma. IMPRESSION: No acute fracture or dislocation identified. The above report was generated using voice recognition software. It may contain grammatical, syntax or spelling errors. Electronically signed by: Zaire Ortega M.D. 08/10/2017 12:41 PM Dictated Date/Time: 08/10/2017 12:38 PM Medications Administered Medications (Trade) Dose Ordered Sig/Kira Route Start Time Stop Time Status Last Admin Dose Admin Lidocaine (Lidoderm Patch 5%) 1 patch NOW STAT TD 08/10/17 12:52 08/10/17 12:53 DC 08/10/17 13:00 1 PATCH ED Course 1146: Past medical records reviewed. The patient was evaluated in room C9. A complete history and physical examination was performed. 1258: Upon reexamination the patient is resting in bed. I discussed results and treatment plan with the patient. She verbalizes agreement and understanding. The patient is ready for discharge. Medical Decision Differential diagnosis: Etiologies such as musculoskeletal, disc herniation, fracture, aortic disease, metastatic disease, cord compression, discitis, infection, renal colic, gastrointestinal, acute exacerbation of chronic back pain, sciatica, cauda equina, as well as others were entertained. This is a 76-year-old female who presents the emergency department complaining of sciatic-like pain that is running down her left leg after being manipulated by a physician. I made several recommendations to this patient including conservative care including pain control as well as steroids however the patient is adamantly refusing. I did recommend back exercises for this patient. Using shared medical decision making patient is requesting an MRI however I was unsure if the patient is unsure insurance would cover it. I recommended conservative treatment first for the patient before we order an MRI. She was sent for CAT scan lumbar spine as well as the pelvis. This did not show any acute process. I feel based on this that the patient can be safely discharged home follow-up with orthopedics. I did order Lidoderm patch for the patient patient was in agreement with the treatment plan. Medication Reconcilliation Current Medication List: was personally reviewed by me Blood Pressure Screening Patient's blood pressure: Normal blood pressure Impression Primary Impression: Back pain with sciatica Scribe Attestation The scribe's documentation has been prepared under my direction and personally reviewed by me in its entirety. I confirm that the note above accurately reflects all work, treatment, procedures, and medical decision making performed by me. Departure Information Dispostion Home / Self-Care Prescriptions Lidocaine (Lidocaine) 1 Patch Tdsy 5 % TD DAILY for 30 Days, #30 PATCH Prov: Angel Melgar MD 08/10/17 Referrals Evie Morales DO (PCP) Forms HOME CARE DOCUMENTATION FORM, IMPORTANT VISIT INFORMATION Patient Instructions My [facility] Additional Instructions Follow up with Dr Chandler's office Recommend taking 600 mg Ibuprofen every 6 hours or Aleve as directed You have been examined and treated today on an emergency basis only. This is not a substitute for, or an effort to provide, complete comprehensive medical care. It is impossible to recognize and treat all injuries or illnesses in a single emergency department visit. It is therefore important that you follow up closely with Dr Weinstein. Call as soon as possible for an appointment. Thank you for your time and consideration. I look forward to speaking with you again soon. Please don't hesitate to call us if you have any questions.
--- NOTE | 2017-08-10 12:42 | DIAGNOSTIC IMAGING REPORT ---
LUMBAR SPINE WITHOUT CLINICAL HISTORY: 76 years-old Female presenting with Pt c/o left leg sciatica. TECHNIQUE: Multidetector CT of the lumbar spine was performed without the use of intravenous contrast. IV contrast: None. A dose lowering technique was used consistent with the principles of ALARA (as low as reasonably achievable). COMPARISON: None. CT DOSE (mGy.cm): The estimated cumulative dose is 881.29 mGy.cm. 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 Normal lumbar lordosis. Prominent Schmorl's node noted at the anterior aspect of the superior endplate of L2. Trace anterolisthesis of L3 on L4. Vertebral bodies otherwise maintain normal height and alignment. Intervertebral disc heights preserved. Facet arthropathy evident most significant in the lower lumbar spine. Bony spurring as result of facet arthropathy results in mild narrowing of the bilateral neural foramina at L3-4 and L4-5. Soft tissue primarily narrows the neural foramina at L5-S1 greater on the right. Allowing for limitations of CT, no evidence of soft tissue narrowing of the spinal canal. No osseous narrowing of spinal canal. No acute fracture or acute subluxation. Visualized portion of the sacrum intact. Incidental note made of a sacral dural ectasia. Remaining visualized soft tissues demonstrate atherosclerosis of the normal caliber abdominal aorta. IMPRESSION: 1. No acute osseous injury of the lumbar spine. 2. Mild multilevel degenerative changes. Electronically signed by: Nakul Gerardo M.D. 08/10/2017 12:40 PM Dictated Date/Time: 08/10/2017 12:36 PM
--- NOTE | 2017-08-10 12:43 | DIAGNOSTIC IMAGING REPORT ---
PELVIS NO IV/ORAL CONT (CT) HISTORY: 76 years-old Female Pt c/o left leg weakness acute left leg pain and weakness COMPARISON: CT abdomen and pelvis 07/20/2016 TECHNIQUE: Multiple axial CT images of the pelvis were obtained without the use of IV contrast. A dose lowering technique was used consistent with the principals of JOHNIE. FINDINGS: Severe facet arthropathy about the imaged lower lumbar spine. Mild to moderate degenerative changes about the SI joints. No sacral insufficiency fracture. No pelvic ring fracture. There are moderate degenerative changes about the bilateral femoral acetabular joints without acute fracture or dislocation. The bones appear mildly demineralized. There are suggested large perineural root sleeve cysts about the sacrum with bony remodeling changes. Moderate atherosclerosis of the abdominal aorta and iliac vasculature. Moderate volume of formed stool throughout the colon. The appendix appears normal. Soft tissues are within normal limits. No large hematoma. IMPRESSION: No acute fracture or dislocation identified. The above report was generated using voice recognition software. It may contain grammatical, syntax or spelling errors. Electronically signed by: Zaire Ortega M.D. 08/10/2017 12:41 PM Dictated Date/Time: 08/10/2017 12:38 PM
[2017-08-10] MEDS ORDERED: LIDODERM (LIDOCAINE) PATCH 5% TD STA (12:52)
[2017-08-10] MEDS ORDERED: LDDP5 TD (12:55)
[2017-08-10 13:08] VITALS: BP 138/82; PULSE 50; O2SAT 98
== END 2017-08-10 13:09 | disposition home or self-care (01) ==
LOC: C.EDB 10:59 → C.EDC 13:09
DX: M54.32 Sciatica, left side (principal); Z79.899 Other long term (current) drug therapy; Z88.5 Allergy status to narcotic agent

== ENCOUNTER 2017-08-14 10:34 | Emergency (ER) | payer BC ==
[~2017-08-14 10:34] MED LIST changes: +LDDP5 TD; -OMEG10007 PO
[2017-08-14 10:44] VITALS: TEMP 37.3; Ht 160 cm
[2017-08-14] MEDS ORDERED: DEXAMETHASONE **PF** INJ 10 MG/ML VIAL IM STA (11:00)
[2017-08-14] MEDS ORDERED: KETOROLAC TROMETHAMINE 15 MG/ML VIAL IM STA (11:08)
[2017-08-14] MEDS ORDERED: ACET-1693 PO (11:38)
--- NOTE | 2017-08-14 11:49 | EMERGENCY ROOM VISIT NOTE ---
ED Visit Note First contact with patient: 10:55 CHIEF COMPLAINT: "Back pain". HISTORY OF PRESENT ILLNESS: This is an extremely physically active 76-year-old female patient presents to the emergency department via private vehicle complaining of pain in the low back which began about 5 months ago and has been dealing with intermittent left gluteal pain that radiates into her left leg. The pain was gradual in onset, is now constant and worse with movement. The patient notes the pain as sharp with tingling in the foot of the left leg and a 10/10. The patient has taken Tylenol without relief of the pain. The patient denies any loss of control of their bowel or bladder functions. There has been no leg numbness or weakness, and no change in sensation. No nausea or vomiting or abdominal pain. No chest pain or shortness of breath. The patient has no had prior back injuries. No dysuria or increased urinary frequency. REVIEW OF SYSTEMS: A review of systems was performed with positives and pertinent negatives listed in the history of present illness. All other systems were reviewed and are negative. ALLERGIES: Narcotic medications MEDICATIONS: Vitamins PMH: No pertinent SOCIAL HISTORY: Patient lives locally. PHYSICAL EXAM: VITALS: Vitals are noted on the nurse's note and reviewed by myself. Vital signs stable. She is afebrile. GENERAL: 76-year-old female, in no acute distress, nondiaphoretic, well- developed well-nourished. SKIN: The skin was without rashes, erythema, edema, or bruising. NECK: Supple without nuchal rigidity. No cervical spine tenderness. No paraspinous muscle tenderness. HEART: Regular rate and rhythm without murmurs gallops or rubs. LUNGS: Clear to auscultation bilaterally without wheezes, rales or rhonchi. ABDOMEN: P Soft, nontender, without masses or organomegaly. Mayes sign negative. MUSCULOSKELETAL: No muscle atrophy, erythema, or edema noted of the back. There is no tenderness over the lumbar spinous processes. There is no tenderness over the paraspinous muscles of the back at all. There is no tenderness over the thoracic spine for paraspinous muscles. There are no muscle spasms present. Tenderness is noted directly over the left lateral gluteal region which extends into the posterior thigh down to the foot. Questionably around that of the piriformis muscle. This travels in the distribution of the sciatic nerve. Full strength in the lower extremity noted. NEURO: Patient was alert and oriented to person place and time. Normal sensation to light and sharp touch. Strength 5/5 and equal in the bilateral lower extremities. EMERGENCY DEPARTMENT COURSE: Patient was seen and evaluated as above. Her previous visit was reviewed. She is lying on her right side on the exam table and appears to be in pain. She is afebrile. No evidence of cauda equina syndrome. She points directly over the sciatic nerve region in the left gluteal muscle extending down the left leg. It is reproducible on exam. She had CTs in the recent past which were essentially negative for acute process. I do not believe that further imaging or lab work is necessary. There is no abdominal tenderness. She is likely experiencing sciatic nerve pain either from piriformis muscle or from her underlying activities. Again she is extremely active and notes that she will [place]. When she was here before apparently she was offered a steroid injection declined. She is returning today requesting such. She was given Decadron and Toradol here after discussing thoroughly the benefit versus risk. She was reevaluated and feeling much better. She already has a prescription for prednisone at her pharmacy for pickup which I recommend taking starting tomorrow around noon time. She is to follow with the family doctor in orthopedics. She may require physical therapy. At this time there is no evidence of emergent process which would warrant surgery or inpatient management. She was educated upon management, educated upon worrisome symptoms in which to return, had questions answered prior to discharge, and was discharged home in good condition. She declined all narcotic pain medication. In the evaluation and treatment of this patient the following differential diagnoses were entertained: Fracture, dislocation, strain, sprain, radiculopathy , UTI, abdominal etiology, among others. Problem List Surgical Problems: (1) H/O removal of cyst Status: Resolved Current/Historical Medications Scheduled Ascorbic Acid (Ascorbic Acid), Unknown Dose PO DAILY B-Complex Vitamins (Vitamin B Complex), 1 TAB PO DAILY Cholecalciferol (Vitamin D3), Unknown Dose PO DAILY Coenzyme Q10 (Ubidecarenone) (Co Q-10), 1 CAP PO DAILY Garlic (Garlic), Unknown Dose PO DAILY Lidocaine (Lidocaine), 5 % TD DAILY Lysine Hcl (Lysine), Unknown Dose PO DAILY Selenium-Yeast (Selenium), 1 TAB PO DAILY Vitamin E (E 1000), Unknown Dose PO DAILY Miscellaneous Medications Acetaminophen Tab (Tylenol), 325 MG PO Allergies Uncoded Allergies: NARCOTIC ANALGESICS (Adverse Reaction, Unknown, DELIRIUM, 07/31/16) Vital Signs Date Time Temp Pulse Resp B/P (MAP) Pulse Ox O2 Delivery O2 Flow Rate FiO2 08/14/17 11:53 56 20 147/83 96 08/14/17 10:44 37.3 64 20 130/83 98 Room Air Medications Administered Medications (Trade) Dose Ordered Sig/Kira Route Start Time Stop Time Status Last Admin Dose Admin Dexamethasone Sodium Phosphate (Dexamethasone Inj Pf) 10 mg NOW STAT IM 08/14/17 11:00 08/14/17 11:02 DC 08/14/17 11:16 10 MG Ketorolac Tromethamine (Toradol Inj) 15 mg NOW STAT IM 08/14/17 11:08 08/14/17 11:10 DC 08/14/17 11:17 15 MG Departure Information Impression Primary Impression: Sciatica Dispostion Home / Self-Care Condition GOOD Referrals Suellen Weinstein MD (PCP) Patient Instructions [facility] Additional Instructions You have been treated in the Emergency Department for Back Pain. For pain control, you can use the following [id number] medicines: - Regular strength (325mg/tab) Tylenol (acetaminophen) 2 tabs every 4-6 hours as needed. Do not exceed 12 tablets in a 24 hour period. Avoid taking more than 3 grams (3000 mg) of Tylenol per day. This includes any other sources of acetaminophen you may take on a regular basis. - Regular strength (200 mg/tab) Advil (ibuprofen) 1-2 tabs every 4-6 hours as needed. Do not exceed a dose of 3200 mg per day. If this is an acute injury, ice can be applied to the area of pain for the first 3 days to help decrease pain and inflammation. After the first 3 days, a heating pad can be used over the area for continued soothing relief. You should schedule a follow-up appointment in 2-3 days with your Primary Care Provider for further evaluation and treatment of your back pain. Return to the Emergency Department if your current symptoms worsen despite treatment course outlined above, or if you develop any of the following symptoms : intractable pain despite aforementioned treatment course, loss of control of your bowel or bladder, numbness or tingling in your groin, or development of a fever.
[2017-08-14 11:53] VITALS: BP 147/83; PULSE 56; O2SAT 96
== END 2017-08-14 11:56 | disposition home or self-care (01) ==
LOC: C.EDB 10:35 → C.EDA 11:56
DX: M54.42 Lumbago with sciatica, left side (principal); Z88.5 Allergy status to narcotic agent; Z79.899 Other long term (current) drug therapy

== ENCOUNTER 2021-10-01 11:40 | Observation (INO) ==
--- NOTE | 2021-10-01 12:02 | Emergency Department Note ---
Impression & Plan Pulmonary embolism, DVT (deep venous thrombosis) ED Provider Note NAME: MADHAV EDWARDS AGE: 81 SEX: F : 1940 ARRIVES VIA: Walk-In INFORMANT: Patient ED PROVIDER(S): Chun Michel DO CHIEF COMPLAINT: left leg pain HPI: Patient is a 81-year-old female who presents ER for left leg pain which has been present for the past 4 to 5 days. She notes she has been having swelling with this as well. Denies any headache or change in vision. No chest pain or shortness of breath. No nausea, vomiting, or diarrhea. No dysuria, urgency, or frequency. No coughing up blood vomiting blood or blood in the stool. No dark tarry stools. No recent surgeries or trauma. No previous brain bleeds. ROS: See above HPI for pertinent positives & negatives. A total of 10 systems reviewed and were otherwise negative. PAST MEDICAL HISTORY:See Below PAST SURGICAL HISTORY:See Below FAMILY HISTORY:See Below SOCIAL HISTORY:See Below HOME MEDICATIONS:See Below ALLERGIES:See Below VITALS:See Below PHYSICAL EXAMINATION: GENERAL: Sitting up in bed, alert, well appearing, well nourished, no distress, non-toxic EYE EXAM: normal conjunctiva. OROPHARYNX: no exudate, no erythema, lips, buccal mucosa, and tongue normal and mucous membranes are moist NECK: supple, no nuchal rigidity, no adenopathy, non-tender LUNGS: Clear to auscultation. Normal chest wall mechanics HEART: no murmurs, S1 normal and S2 normal ABDOMEN: abdomen soft, non-tender, normo-active bowel sounds, no masses, no rebound or guarding. UPPER EXTREMITIES: upper extremities are grossly normal. LOWER EXTREMITIES: Left calf is larger than the right. DP are 2/4 B/L NEURO EXAM: Normal sensorium, cranial nerves II-XII grossly intact, normal speech, no gross weakness of arms, no gross weakness of legs. MEDICAL DECISION MAKING: Patient is a 81-year-old female who presents the ER for left lower extremity DVT referred in for further evaluation. IV was established blood work was obtained. Labs show no significant leukocytosis or anemia. BMP with LFTs bilirubin were unremarkable. Troponin was negative. Lipase is unremarkable. CT of the chest did show PEs. Ultrasound was used and did show extensive DVTs. Patient was updated bedside. She initially declined admission but was eventually agreeable after further conversation. Patient was placed on heparin drip and bolus. Discussed with Pt concerning signs and symptoms to watch out for. Pt was instructed to follow up with their PCP and discussed with the patient their option to return to the ED at anytime for persistent or worsening symptoms. The appropriate anticipatory guidance and out-patient management, including indications for return to the emergency department, were explained at length to the patient and understood. Triage Nursing notes reviewed. Limited review of prior medical records performed Vital Signs: reviewed and remarkable for no significant abnormalities Differential diagnosis: DVT, musculoskeletal, infection, joint effusion, trauma, lymphedema, idiopathic, CHF, as well as other pathologies. ER treatment provided: See below Diagnostics interpreted by me: ECG: Sinus rhythm rate 62 Left axis No PVCs T wave inversion in septal leads QTC 422 Cardiac Monitoring: An order was placed for continuous cardiac monitoring. The monitor shows a rate of 60 with sinus rhythm. Laboratory studies: As stated above and show below. Imaging studies: CT angio showed PE Consultation(s): D/w Augie Harrington for further evaluation Procedures: none Critical Care: I have personally spent 35 minutes of critical care time in the direct management of this patient. This includes bedside care, interpretation of diagnostic studies, and testing, discussion with consultants, patient, and family members, and other required patient management activities. This 35 minutes is in excess of all separately billable procedures. Past Med/Surg History Medical History Sensorineural hearing loss of both ears Skin cancer Tick bite Surgical History H/O removal of cyst S/P discectomy for herniated nucleus pulposus Family History Grandmother (Maternal) Cancer Father , in his 80s of a stroke Stroke Mother , in her late 80s of uncertain causes No problems noted. 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 [facility] Feels Safe at Home: Yes Allergies Allergies Allergy/AdvReac Type Severity Reaction Status Date / Time NARCOTIC ANALGESICS AdvReac Unknown DELIRIUM Uncoded 09/30/21 17:52 Home Meds Home Medications Medication Instructions Recorded Confirmed kim (Zingiber officinalis) 250 250 mg PO DAILY 04/18/19 10/01/21 mg capsule lutein 20 mg tablet 20 mg PO DAILY 04/18/19 10/01/21 omega-3 acid ethyl esters 1 gram 1 g PO DAILY 04/18/19 10/01/21 capsule ascorbic acid (vitamin C) 1,000 mg 1,000 mg PO DAILY tab 03/23/20 10/01/21 tablet cholecalciferol (vitamin D3) 50 2,000 unit PO DAILY tab 03/23/20 10/01/21 mcg (2,000 unit) tablet garlic 1,000 mg capsule (garlic 2,000 mg PO DAILY cap 03/23/20 10/01/21 oil) potassium gluconate 550 mg (90 mg) 550 mg PO DAILY 03/23/20 10/01/21 tablet selenium 1 ea PO DAILY 03/23/20 10/01/21 vitamin B complex 1 tab PO DAILY 03/23/20 10/01/21 coenzyme Q10 100 mg tablet 100 mg PO DAILY 10/01/21 10/01/21 lysine 500 mg tablet 500 mg PO DAILY 10/01/21 10/01/21 magnesium 250 mg tablet 250 mg PO DAILY 10/01/21 10/01/21 turmeric 400 mg capsule 400 mg PO DAILY 10/01/21 10/01/21 vitamin A 10,000 unit tablet 10,000 unit PO Q OTHER DAY 10/01/21 10/01/21 vitamin E 400 unit tablet 400 unit PO DAILY 10/01/21 10/01/21 Results & Data (ED) Vital Signs Vital Signs - 24 hr 10/01/21 11:42 10/01/21 11:57 10/01/21 12:13 Temperature 36.7 C Temperature Source Temporal Artery Scan Pulse Rate 70 77 Pulse Rate [Apical] Pulse Rate from SpO2 Sensor 64 Respiratory Rate 18 21 Respiratory Effort / Characteristics Non-Labored Respiratory Depth Normal Blood Pressure 114/84 Blood Pressure [Right Arm] Blood Pressure Mean 94 Blood Pressure Mean [Right Arm] Pulse Oximetry 96 98 95 Oxygen Delivery Method Room Air Oxymask Sepsis Recent Fever Within 48 Hours No Sepsis New/Unexplained Change in Mental Status No Sepsis Action Taken by Nursing No Action Required 10/01/21 12:20 10/01/21 12:40 10/01/21 12:50 Temperature Temperature Source Pulse Rate 64 Pulse Rate [Apical] Pulse Rate from SpO2 Sensor 64 72 62 Respiratory Rate 17 Respiratory Effort / Characteristics Respiratory Depth Blood Pressure Blood Pressure [Right Arm] Blood Pressure Mean Blood Pressure Mean [Right Arm] Pulse Oximetry 96 95 97 Oxygen Delivery Method Sepsis Recent Fever Within 48 Hours Sepsis New/Unexplained Change in Mental Status Sepsis Action Taken by Nursing 10/01/21 13:00 10/01/21 13:10 10/01/21 13:21 Temperature Temperature Source Pulse Rate Pulse Rate [Apical] Pulse Rate from SpO2 Sensor 61 61 61 Respiratory Rate Respiratory Effort / Characteristics Respiratory Depth Blood Pressure 113/69 Blood Pressure [Right Arm] Blood Pressure Mean 83 Blood Pressure Mean [Right Arm] Pulse Oximetry 97 95 97 Oxygen Delivery Method Sepsis Recent Fever Within 48 Hours Sepsis New/Unexplained Change in Mental Status Sepsis Action Taken by Nursing 10/01/21 13:30 10/01/21 13:40 10/01/21 13:50 Temperature Temperature Source Pulse Rate Pulse Rate [Apical] Pulse Rate from SpO2 Sensor 60 62 61 Respiratory Rate Respiratory Effort / Characteristics Respiratory Depth Blood Pressure 106/67 Blood Pressure [Right Arm] Blood Pressure Mean 80 Blood Pressure Mean [Right Arm] Pulse Oximetry 95 96 97 Oxygen Delivery Method Sepsis Recent Fever Within 48 Hours Sepsis New/Unexplained Change in Mental Status Sepsis Action Taken by Nursing 10/01/21 14:00 10/01/21 14:10 10/01/21 14:20 Temperature Temperature Source Pulse Rate Pulse Rate [Apical] Pulse Rate from SpO2 Sensor 60 66 63 Respiratory Rate Respiratory Effort / Characteristics Respiratory Depth Blood Pressure 136/74 Blood Pressure [Right Arm] Blood Pressure Mean 94 Blood Pressure Mean [Right Arm] Pulse Oximetry 95 96 96 Oxygen Delivery Method Sepsis Recent Fever Within 48 Hours Sepsis New/Unexplained Change in Mental Status Sepsis Action Taken by Nursing 10/01/21 14:30 10/01/21 14:31 10/01/21 14:40 Temperature Temperature Source Pulse Rate 73 63 Pulse Rate [Apical] Pulse Rate from SpO2 Sensor 64 66 64 Respiratory Rate 27 H 20 Respiratory Effort / Characteristics Respiratory Depth Blood Pressure 135/108 H Blood Pressure [Right Arm] Blood Pressure Mean 117 Blood Pressure Mean [Right Arm] Pulse Oximetry 97 94 97 Oxygen Delivery Method Sepsis Recent Fever Within 48 Hours Sepsis New/Unexplained Change in Mental Status Sepsis Action Taken by Nursing 10/01/21 15:55 Temperature Temperature Source Pulse Rate Pulse Rate [Apical] 57 L Pulse Rate from SpO2 Sensor Respiratory Rate 20 Respiratory Effort / Characteristics Non-Labored Respiratory Depth Normal Blood Pressure Blood Pressure [Right Arm] 119/71 Blood Pressure Mean Blood Pressure Mean [Right Arm] 87 Pulse Oximetry 96 Oxygen Delivery Method Room Air Sepsis Recent Fever Within 48 Hours Sepsis New/Unexplained Change in Mental Status Sepsis Action Taken by Nursing Laboratory Data Result diagrams: 10/01/21 12:04 10/01/21 12:04 Lab Results 10/01/21 10/01/21 10/01/21 Range/Units 12:04 12:04 12:08 WBC 6.56 (4.8-10.8) K/ul RBC 4.87 (3.93-5.22) M/uL Hgb 14.2 (12.0-16.0) g/dl POC Hgb 14.6 (12.0-16.0) g/dl Hct 42.4 (34.1-44.9) % POC Hct 43 (37-47) % MCV 87.1 (80.0-100.0) fL MCH 29.2 (25.0-34.0) pg MCHC 33.5 (32.0-36.0) g/dL RDW Std Deviation 39.1 (36.4-46.3) fL RDW Coeff of Lisa 12.3 (11.5-14.5) % Plt Count 238 (130-400) K/uL MPV 9.5 (9.4-12.3) fL Immature Gran % (Auto) 0.3 % Neut % (Auto) 55.1 % Lymph % (Auto) 28.2 % [place] % (Auto) 11.1 % Eos % (Auto) 4.7 % Baso % (Auto) 0.6 % Neut # (Auto) 3.61 (1.4-6.5) K/uL Lymph # (Auto) 1.85 (1.2-3.4) K/uL [place] # (Auto) 0.73 (0.24-0.82) K/uL Eos # (Auto) 0.31 (0-0.50) K/uL Baso # (Auto) 0.04 (0-0.2) K/uL Immature Gran # (Auto) 0.02 (0.00-0.02) K/uL APTT (21.0-31.0) Seconds PTT Ratio POC Sodium 140 (135-144) mmol/L Sodium 138 (136-145) mmol/L POC Potassium 4.0 (3.3-5.0) mmol/L Potassium 3.9 (3.5-5.1) mmol/L POC Chloride 104 (101-112) mmol/L Chloride 104 (98-107) mmol/L Carbon Dioxide 28 (21-32) mmol/L POC Total CO2 27 (24-31) mmol/L Anion Gap 6 (3-11) POC Anion Gap 13.0 L (16-25) mmol/L POC BUN 16 (7-18) mg/dl BUN 17 (6-23) mg/dl Creatinine 0.83 (0.6-1.2) mg/dl POC Creatinine 0.8 (0.6-1.3) mg/dl Est Cr Clr Drug Dosing 50.4 ml/min Est GFR ( Amer) 77.7 ml/min Est GFR (Non-Af Amer) 67.1 ml/min BUN/Creatinine Ratio 20.5 H (10-20) Glucose 103 H (70-99(Fasting)) mg/dl POC Glucose (other) 104 H (70-99) mg/dl Calcium 9.7 (8.5-10.1) mg/dl POC Ioniz Calcium Harmony 1.30 (1.12-1.32) mmol/l Total Bilirubin 0.5 (0.2-1.0) mg/dl AST 19 (13-39) U/L ALT 9 (7-52) U/L Alkaline Phosphatase 65 (34-104) U/L Troponin I High Sens 4.7 (0-14) pg/ml Total Protein 7.1 (6.0-8.3) gm/dl Albumin 4.0 (3.4-5.0) gm/dl Globulin 3.1 (2.5-4.0) gm/dl Albumin/Globulin Ratio 1.3 (0.9-2) Lipase 41 (11-82) U/L 10/01/21 Range/Units 14:59 WBC (4.8-10.8) K/ul RBC (3.93-5.22) M/uL Hgb (12.0-16.0) g/dl POC Hgb (12.0-16.0) g/dl Hct (34.1-44.9) % POC Hct (37-47) % MCV (80.0-100.0) fL MCH (25.0-34.0) pg MCHC (32.0-36.0) g/dL RDW Std Deviation (36.4-46.3) fL RDW Coeff of Lisa (11.5-14.5) % Plt Count (130-400) K/uL MPV (9.4-12.3) fL Immature Gran % (Auto) % Neut % (Auto) % Lymph % (Auto) % [place] % (Auto) % Eos % (Auto) % Baso % (Auto) % Neut # (Auto) (1.4-6.5) K/uL Lymph # (Auto) (1.2-3.4) K/uL [place] # (Auto) (0.24-0.82) K/uL Eos # (Auto) (0-0.50) K/uL Baso # (Auto) (0-0.2) K/uL Immature Gran # (Auto) (0.00-0.02) K/uL APTT 130.5 H* (21.0-31.0) Seconds PTT Ratio 4.7 POC Sodium (135-144) mmol/L Sodium (136-145) mmol/L POC Potassium (3.3-5.0) mmol/L Potassium (3.5-5.1) mmol/L POC Chloride (101-112) mmol/L Chloride (98-107) mmol/L Carbon Dioxide (21-32) mmol/L POC Total CO2 (24-31) mmol/L Anion Gap (3-11) POC Anion Gap (16-25) mmol/L POC BUN (7-18) mg/dl BUN (6-23) mg/dl Creatinine (0.6-1.2) mg/dl POC Creatinine (0.6-1.3) mg/dl Est Cr Clr Drug Dosing ml/min Est GFR ( Amer) ml/min Est GFR (Non-Af Amer) ml/min BUN/Creatinine Ratio (10-20) Glucose (70-99(Fasting)) mg/dl POC Glucose (other) (70-99) mg/dl Calcium (8.5-10.1) mg/dl POC Ioniz Calcium Harmony (1.12-1.32) mmol/l Total Bilirubin (0.2-1.0) mg/dl AST (13-39) U/L ALT (7-52) U/L Alkaline Phosphatase (34-104) U/L Troponin I High Sens (0-14) pg/ml Total Protein (6.0-8.3) gm/dl Albumin (3.4-5.0) gm/dl Globulin (2.5-4.0) gm/dl Albumin/Globulin Ratio (0.9-2) Lipase (11-82) U/L Administered Medications Heparin Sodium/Dextrose (Heparin Sodium/Dextrose) 25,000 units in 500 mls @ 21 mls/hr IV .[id number] SAMMI; Protocol Stop: 10/31/21 13:59 Last Admin: 10/01/21 14:33 Dose: 1,050 units/hr, 21 mls/hr Documented by: [id number] Cosigned by: [id number] Discontinued Medications Heparin Sodium (Porcine) (Heparin Sod (Porcine) 1000 Unit/Ml) 1 units IV NOW ONE Stop: 10/01/21 13:54 Last Admin: 10/01/21 14:33 Dose: 5,000 units Documented by: [id number] Cosigned by: [id number] Heparin Sodium (Porcine) (Heparin Sod (Porcine) 1000 Unit/Ml) 5,000 units IV NOW ONE Stop: 10/01/21 14:31 Last Admin: 10/01/21 14:36 Dose: Not Given Documented by: [id number] Heparin Sodium/Dextrose (Heparin Iv Adult Wt-Based Standard With Bolus Protocol) 1 ea IV NOW STA; Protocol Stop: 10/01/21 13:39 Last Admin: 10/01/21 14:34 Dose: 1 ea Documented by: [id number] Ioversol (Optiray 320 125ml) 88 ml IV ONCE ONE Stop: 10/01/21 12:41 Last Admin: 10/01/21 12:41 Dose: 88 ml Documented by: [id number] Imaging Data Radiologist's Impression: Chest CTA 10/01/21 11:57 CT angio chest PE protocol CLINICAL HISTORY: Chest pain and left lower extremity DVT. COMPARISON STUDY: No previous studies for comparison. CT DOSE: 342.05 mGycm TECHNIQUE: CT Angio of the chest was performed.followed by image post proce ssing with coronal, and sagittal MIP reformats. Contrast Volume: Optiray 320, 88 ml FINDINGS: Vasculature: There is a large thrombus present within the left main pulmonary artery distally with extension of thrombus into the left upper lobe and left lower lobe pulmonary arteries. Homogeneous perfusion is seen within the pulmonary arteries on the right. Airway: The airway is clear. No endobronchial lesion is identified. Lungs: Minimal dependent edema is seen at the lung bases posteriorly. The lungs are clear of acute alveolar opacities, air bronchograms or pulmonary nodules. Pleura: There is no evidence for pleural effusion. There is no evidence for pneumothorax. Mediastinum: There is no evidence for pathologic adenopathy. The heart size is within normal limits. The thoracic aorta is within normal limits. There is no evidence for pericardial effusion. Upper abdomen:The adrenal glands are normal bilaterally. Osseous structures: There is no acute osseous pathology. Impression: 1. Positive CTA for pulmonary emboli within the distal left main pulmonary artery and extending into the left upper lobe and left lower lobe pulmonary arteries. 2. No acute chest disease. 3. Minimal dependent edema at the lung bases posteriorly. ACT 112: Negative or not required by law. Electronically signed by: Sukhi Fontenot M.D. 10/01/2021 1:08 PM Discharge Plan Visit Data Chief Complaint: Referred by Doctor Stated Complaint: REF BY ED Provider: Chun Michel Discharge Problem: Pulmonary embolism, DVT (deep venous thrombosis) Forms Stand Alone Forms: My [facility] [employer] Prescriptions Prescriptions: No Action ascorbic acid (vitamin C) 1,000 mg tablet 1,000 mg PO DAILY RF: 0 cholecalciferol (vitamin D3) 50 mcg (2,000 unit) tablet 2,000 unit PO DAILY RF: 0 garlic [garlic oil] 1,000 mg capsule 2,000 mg PO DAILY RF: 0 potassium gluconate 550 mg (90 mg) tablet 550 mg PO DAILY RF: 0 selenium 1 ea PO DAILY RF: 0 vitamin B complex Tablet 1 tab PO DAILY RF: 0 kim (Zingiber officinalis) 250 mg capsule 250 mg PO DAILY RF: 0 lutein 20 mg tablet 20 mg PO DAILY RF: 0 omega-3 acid ethyl esters 1 gram capsule 1 g PO DAILY RF: 0 coenzyme Q10 100 mg Tablet 100 mg PO DAILY RF: 0 vitamin E 400 unit Tablet 400 unit PO DAILY RF: 0 magnesium 250 mg Tablet 250 mg PO DAILY RF: 0 turmeric 400 mg Capsule 400 mg PO DAILY RF: 0 lysine 500 mg Tablet 500 mg PO DAILY RF: 0 vitamin A 10,000 unit Tablet 10,000 unit PO Q OTHER DAY RF: 0 Referrals Referrals: Teja Gaviria DO [Primary Care Provider] - Discharge Problem: Pulmonary embolism Qualifiers: Pulmonary embolism type: unspecified Chronicity: acute Acute cor pulmonale presence: unspecified Qualified Code(s): I26.99 - Other pulmonary embolism without acute cor pulmonale DVT (deep venous thrombosis) Qualifiers: DVT location: lower extremity Affected thrombotic vein of extremity: unspecified vein of extremity Chronicity: acute Laterality: left Qualified Code(s): I82.402 - Acute embolism and thrombosis of unspecified deep veins of left lower extremity
[2021-10-01 12:25] LABS: iSTAT Creatinine 0.8 mg/dl (0.6-1.3); iSTAT Hemoglobin 14.6 g/dl (12.0-16.0); iSTAT Ionized Calcium 1.3 mmol/l (1.12-1.32)
[2021-10-01 12:34] LABS: Basophils # (auto) 0.04 K/uL (0-0.2); Basophils % (auto) 0.6 %; Eosinophils # (auto) 0.31 K/uL (0-0.50); Eosinophils % (auto) 4.7 %; Hematocrit (blood only) 42.4 % (34.1-44.9); Hemoglobin 14.2 g/dl (12.0-16.0); Immature Granulocytes # (auto) 0.02 K/uL (0.00-0.02); Immature Granulocytes % (auto) 0.3 %; Lymphocytes # (auto) 1.85 K/uL (1.2-3.4); Lymphocytes % (auto) 28.2 %; Mean Corpuscular Hemoglobin 29.2 pg (25.0-34.0); Mean Corpuscular Hgb Conc 33.5 g/dL (32.0-36.0); Mean Corpuscular Volume 87.1 fL (80.0-100.0); Mean Platelet Volume 9.5 fL (9.4-12.3); Monocytes # (auto) 0.73 K/uL (0.24-0.82); Monocytes % (auto) 11.1 %; Neutrophils # (auto) 3.61 K/uL (1.4-6.5); Neutrophils % (auto) 55.1 %; Platelet Count 238 K/uL (130-400); RDW Coefficient of Variation 12.3 % (11.5-14.5); RDW Standard Deviation 39.1 fL (36.4-46.3); Red Blood Count 4.87 M/uL (3.93-5.22); White Blood Count 6.56 K/ul (4.8-10.8)
[2021-10-01] MEDS ORDERED: OPTIRAY 320 125ml IV ONE (12:40)
[2021-10-01 12:55] LABS: Albumin Globulin Ratio 1.3 (0.9-2); BUN Creatinine Ratio 20.5 (10-20); Bilirubin,Total 0.5 mg/dl (0.2-1.0); Calcium 9.7 mg/dl (8.5-10.1); Creatinine Clr Calc Pharmacy 50.4 ml/min; Est GFR (African American) 77.7 ml/min; Est GFR (Non-African American) 67.1 ml/min; Globulin 3.1 gm/dl (2.5-4.0); Potassium 3.9 mmol/L (3.5-5.1); Total Protein 7.1 gm/dl (6.0-8.3)
[2021-10-01 12:59] LABS: Troponin I High Sensitivity 4.7 pg/ml (0-14)
--- NOTE | 2021-10-01 13:10 | CT Scan Report ---
CT angio chest PE protocol CLINICAL HISTORY: Chest pain and left lower extremity DVT. COMPARISON STUDY: No previous studies for comparison. CT DOSE: 342.05 mGycm TECHNIQUE: CT Angio of the chest was performed.followed by image post processing with coronal, and s agittal MIP reformats. Contrast Volume: Optiray 320, 88 ml FINDINGS: Vasculature: There is a large thrombus present within the left main pulmonary artery distally with ex tension of thrombus into the left upper lobe and left lower lobe pulmonary arteries. Homogeneous perf usion is seen within the pulmonary arteries on the right. Airway: The airway is clear. No endobronchial lesion is identified. Lungs: Minimal dependent edema is seen at the lung bases posteriorly. The lungs are clear of acute al veolar opacities, air bronchograms or pulmonary nodules. Pleura: There is no evidence for pleural effusion. There is no evidence for pneumothorax. Mediastinum: There is no evidence for pathologic adenopathy. The heart size is within normal limits. The thoracic aorta is within normal limits. There is no evidence for pericardial effusion. Upper abdomen:The adrenal glands are normal bilaterally. Osseous structures: There is no acute osseous pathology. Impression: 1. Positive CTA for pulmonary emboli within the distal left main pulmonary artery and extending into the left upper lobe and left lower lobe pulmonary arteries. 2. No acute chest disease. 3. Minimal dependent edema at the lung bases posteriorly. ACT 112: Negative or not required by law. Electronically signed by: Sukhi Fontenot M.D. 10/01/2021 1:08 PM
[2021-10-01] MEDS ORDERED: Heparin IV Adult Wt-Based Standard WITH Bolus Protocol IV STA (13:38)
[2021-10-01] MEDS ORDERED: HEPARIN SOD (PORCINE) 1000 UNIT/ML IV ONE ×2 (13:53→14:30)
[2021-10-01] MEDS ORDERED: HEPARIN SODIUM/DEXTROSE 25,000 UNITS/500 ML BAG IV SCH ×3 (14:00→21:30)
--- NOTE | 2021-10-01 14:01 | History & Physical Report ---
Date of Service October 01, 2021 Assessment & Plan (1) Pulmonary embolism: Plan: - Large thrombus present within the left main pulmonary artery distally with extension of thrombus into the left upper lobe and left lower lobe pulmonary arteries. Homogeneous perfusion is seen within the pulmonary arteries on the right. - Despite the clot burden, patient is hemodynamically stable and entirely asymptomatic aside from leg swelling and tightness-absolute no SOB, chest pain, palpitations. - Heparin gtt with bolus started in ED, however was started prior to coag labs being drawn--hold this until labs drawn and PT/INR, PTT at baseline. - So far, no real explanation for such--no cancer, not particularly sedentary however she has significantly decreased her activity level over the past few weeks. No personal or family history of blood/clotting disorders, no hormone use or tobacco use. - Given her age and this being her first VTE, do not think hypercoagulability panel would be worthwhile. - Could consider consulting vascular surgery for further recommendations rega rding workup for potential etiology, however there will not be coverage until Monday, 10/04. - ? if left iliac artery could be compressing iliac vein and causing extensive clot burden at the level of iliac vein (Mosher Thurner syndrome)--I personally spoke with the lead maintenance technician who performed the ultrasound this AM. Clotburdn endd at the common femoral vein at the location where greater sa phenous vein enters--iliac veins were scanned and no clot was ID'd superior to common femoral vein. (2) Left leg DVT: Plan: - Management as above. (3) Idiopathic polyneuropathy: Plan: - Patient takes a variety of supplements and vitamins for this, may continue as able based on hospital formulation. Plan: - Admit to PCU. - Heparin drip. - Full code. History of Present Illness Chief Complaint: DVT on outpatient imaging Primary Care Provider: Teja Gaviria DO Christy hutton is a 81-year-old female with past medical history significant for idiopathic polyneuropathy who presents at the recommendation of her PCP for DVT. Patient saw primary care yesterday for swelling of her left leg, they ordered a Doppler of her leg that was performed this morning and revealed an extensive DVT, which prompted them to refer her to ED for further evaluation. Here she had a CTA which revealed a large thrombus present within the left main pulmonary artery distally with extension thrombus in the left upper lobe and left lower lobe pulmonary arteries. She has been hemodynamically stable since arrival, SPO2 >95% on room air (Oxymask use documented in error in ED vitals chart). She never had a blood clot before and denies family history of such. Had a skin cancer removed a year or so ago, but has no other skin there history and only notes a family history of cancer in her grandmother, who was 90 when she was diagnosed. She has been less active over the past few weeks, noting that she typically did physical activity 1-2 hours a day every day, up until the last few weeks when she had computer work to do at home and had not been as active as she usually is. He is not a smoker, not on any hormones, no recent surgeries. Allergies Allergy/AdvReac Type Severity Reaction Status Date / Time NARCOTIC ANALGESICS AdvReac Unknown DELIRIUM Uncoded 09/30/21 17:52 Home Medications Medication Instructions Recorded Confirmed Type kim (Zingiber officinalis) 250 250 mg PO DAILY 04/18/19 10/01/21 History mg capsule lutein 20 mg tablet 20 mg PO DAILY 04/18/19 10/01/21 History omega-3 acid ethyl esters 1 gram 1 g PO DAILY 04/18/19 10/01/21 History capsule ascorbic acid (vitamin C) 1,000 mg 1,000 mg PO DAILY tab 03/23/20 10/01/21 History tablet cholecalciferol (vitamin D3) 50 2,000 unit PO DAILY tab 03/23/20 10/01/21 History mcg (2,000 unit) tablet garlic 1,000 mg capsule (garlic 2,000 mg PO DAILY cap 03/23/20 10/01/21 History oil) potassium gluconate 550 mg (90 mg) 550 mg PO DAILY 03/23/20 10/01/21 History tablet selenium 1 ea PO DAILY 03/23/20 10/01/21 History vitamin B complex 1 tab PO DAILY 03/23/20 10/01/21 History coenzyme Q10 100 mg tablet 100 mg PO DAILY 10/01/21 10/01/21 History lysine 500 mg tablet 500 mg PO DAILY 10/01/21 10/01/21 History magnesium 250 mg tablet 250 mg PO DAILY 10/01/21 10/01/21 History turmeric 400 mg capsule 400 mg PO DAILY 10/01/21 10/01/21 History vitamin A 10,000 unit tablet 10,000 unit PO Q OTHER DAY 10/01/21 10/01/21 History vitamin E 400 unit tablet 400 unit PO DAILY 10/01/21 10/01/21 History Past Med/Surg History Medical History Sensorineural hearing loss of both ears Skin cancer Tick bite Surgical History H/O removal of cyst S/P discectomy for herniated nucleus pulposus Family History Grandmother (Maternal) Cancer Father , in his 80s of a stroke Stroke Mother , in her late 80s of uncertain causes No problems noted. 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 [facility] Feels Safe at Home: Yes Review of Systems Review of Systems: Constitutional: No fever/chills, weakness, fatigue, myalgias, anorexia, night sweats Eyes: No diplopia, no worsening or blurred vision ENT: normal hearing, no trouble swallowing Respiratory: No cough, sputum, dyspnea at rest or on exertion Cardiovascular: No chest pain, tightness or palpitations Abdomen: No pain, nausea, vomiting, diarrhea or constipation : Denies dysuria, hematuria, increased urgency/frequency, urinary retention Musculoskeletal: Left leg swelling, pain at medial aspect of knee; tightness in calf Neurologic: No weakness, numbness/tingling, or balance problems Psychiatric: No anxiety or depression Skin: No rash or itch Physical Exam Physical Exam: General: awake, alert, no apparent distress Head: Normocephalic, atraumatic ENT: PERRL, EOMI, no pharyngeal exudate, mucous membranes moist Chest: Clear to auscultation, on room air, no adventitious breath sounds Cardiac: Regular rate and rhythm, no murmur, no JVD, normal peripheral pulses, good capillary refill Abdominal: NABS x 4 quadrants, soft, nontender to palpation, no rebound, guarding or tenderness Extremities: Left leg swelling from foot up to level of calf with tightness, redness and pain on medial aspect of knee Psych: Normal mood and affect Neuro: AAO x 3, strength intact bilaterally and rated 5/5, no motor deficits, speech is clear, no peripheral sensory deficits Skin: no rash or erythema Results & Data Results & Data ([facility]) Vital Signs (Past 12 Hours) Vital Signs Temp Pulse Resp BP Pulse Ox 10/01/21 13:21 97 10/01/21 13:10 95 10/01/21 13:00 113/69 97 10/01/21 12:50 97 10/01/21 12:40 95 10/01/21 12:20 64 17 96 10/01/21 12:13 77 21 95 10/01/21 11:57 98 10/01/21 11:42 36.7 C 70 18 114/84 96 Laboratory Results Abnormal lab results 10/01/21 10/01/21 Range/Units 12:04 12:08 POC Anion Gap 13.0 L (16-25) mmol/L BUN/Creatinine Ratio 20.5 H (10-20) Glucose 103 H (70-99(Fasting)) mg/dl POC Glucose (other) 104 H (70-99) mg/dl Diagnostic Findings Chest CTA 10/01/21 11:57 CT angio chest PE protocol CLINICAL HISTORY: Chest pain and left lower extremity DVT. COMPARISON STUDY: No previous studies for comparison. CT DOSE: 342.05 mGycm TECHNIQUE: CT Angio of the chest was performed.followed by image post proce ssing with coronal, and sagittal MIP reformats. Contrast Volume: Optiray 320, 88 ml FINDINGS: Vasculature: There is a large thrombus present within the left main pulmonary artery distally with extension of thrombus into the left upper lobe and left lower lobe pulmonary arteries. Homogeneous perfusion is seen within the pulmonary arteries on the right. Airway: The airway is clear. No endobronchial lesion is identified. Lungs: Minimal dependent edema is seen at the lung bases posteriorly. The lungs are clear of acute alveolar opacities, air bronchograms or pulmonary nodules. Pleura: There is no evidence for pleural effusion. There is no evidence for pneumothorax. Mediastinum: There is no evidence for pathologic adenopathy. The heart size is within normal limits. The thoracic aorta is within normal limits. There is no evidence for pericardial effusion. Upper abdomen:The adrenal glands are normal bilaterally. Osseous structures: There is no acute osseous pathology. Impression: 1. Positive CTA for pulmonary emboli within the distal left main pulmonary artery and extending into the left upper lobe and left lower lobe pulmonary arteries. 2. No acute chest disease. 3. Minimal dependent edema at the lung bases posteriorly. ACT 112: Negative or not required by law. Electronically signed by: Sukhi Fontenot M.D. 10/01/2021 1:08 PM ECG Additional Comments: Normal sinus rhythm Possible Left atrial enlargement Left axis deviation Incomplete right bundle branch block. Code Status & VTE Plan Code Status Full code. PG Care Time/CCT Total # of Minutes Spent Total Time Spent with Patient: Total time spent is greater than 50% in coordination of care (as documented) at patient's floor/unit and/or counseling patient: Coding Level of Care Code 51936 Initial Inpt Care Lvl 3 Diagnoses Pulmonary embolism I26.99 Left leg DVT I82.402 Idiopathic polyneuropathy G60.9
[2021-10-01 15:39] LABS: Partial Thromboplastin Ratio 4.7
[2021-10-01 15:46] LABS: Partial Thromboplastin Time 130.5 Seconds (21.0-31.0)
[2021-10-01 16:40] LABS: INR 1.1 (0.9-1.1); Prothrombin Time 11.6 Seconds (9.0-12.0)
[2021-10-01] MEDS ORDERED: ONDANSETRON INJ 2 MG/ML 2 ML VIAL IV PRN (18:36)
[2021-10-01] MEDS ORDERED: POLYETHYLENE (MIRALAX) 17 GM PACK PO PRN (18:36)
[2021-10-01] MEDS ORDERED: ACETAMINOPHEN 325 MG TAB PO PRN (18:36)
[2021-10-01 19:04] LABS: Partial Thromboplastin Ratio 1.6
[2021-10-01] MEDS ORDERED: Heparin IV Adult Wt-Based Standard *NO* Bolus Protocol IV ONE ×2 (19:29→21:10)
[2021-10-01 20:07] LABS: Partial Thromboplastin Time 27.2 Seconds (21.0-31.0)
--- NOTE | 2021-10-01 23:33 | Electrocardiogram Report ---
Test Reason : Blood Pressure : / mmHG Vent. Rate : 062 BPM Atrial Rate : 062 BPM P-R Int : 202 ms QRS Dur : 092 ms QT Int : 416 ms P-R-T Axes : 052 -34 014 degrees QTc Int : 422 ms Normal sinus rhythm Possible Left atrial enlargement Left axis deviation Incomplete right bundle branch block Septal infarct , age undetermined Abnormal ECG When compared with ECG of 20-JUL-2016 09:49, Incomplete right bundle branch block is now Present Septal infarct is now Present Confirmed by Monty Dobbs ([id number]) on 10/01/2021 11:32:33 PM Referred By: REFERRED SELF Confirmed By:Monty Dobbs
[2021-10-02 04:37] LABS: Partial Thromboplastin Ratio 2.1
[2021-10-02 04:40] LABS: Partial Thromboplastin Time 58.6 Seconds (21.0-31.0)
[2021-10-02] MEDS ORDERED: ASCORBIC ACID 500 MG TAB PO SCH (09:00)
[2021-10-02] MEDS ORDERED: CHOLECALCIFEROL 1,000 UNITS 25 MCG TAB PO SCH (09:00)
[2021-10-02 09:03] LABS: Basophils # (auto) 0.05 K/uL (0-0.2); Eosinophils # (auto) 0.33 K/uL (0-0.50); Eosinophils % (auto) 6.5 %; Hemoglobin 13.6 g/dl (12.0-16.0); Immature Granulocytes # (auto) 0.02 K/uL (0.00-0.02); Immature Granulocytes % (auto) 0.4 %; Lymphocytes % (auto) 35.3 %; Mean Corpuscular Hemoglobin 28.8 pg (25.0-34.0); Mean Corpuscular Hgb Conc 33.2 g/dL (32.0-36.0); Mean Corpuscular Volume 86.9 fL (80.0-100.0); Mean Platelet Volume 9.5 fL (9.4-12.3); Monocytes % (auto) 9.8 %; Platelet Count 206 K/uL (130-400); RDW Coefficient of Variation 12.2 % (11.5-14.5); RDW Standard Deviation 38.8 fL (36.4-46.3); Red Blood Count 4.72 M/uL (3.93-5.22)
[2021-10-02 09:34] LABS: BUN Creatinine Ratio 17.8 (10-20); Calcium 9.3 mg/dl (8.5-10.1); Creatinine Clr Calc Pharmacy 46.4 ml/min; Est GFR (African American) 70.5 ml/min; Est GFR (Non-African American) 60.8 ml/min; Potassium 3.7 mmol/L (3.5-5.1)
[2021-10-02] MEDS ORDERED: RIVAROXABAN 15 MG TAB PO STA (11:02)
[2021-10-02] MEDS ORDERED: STOP HEPARIN DRIP ORDER ONE (11:15)
--- NOTE | 2021-10-02 14:40 | Discharge Summary ---
Date of Service October 02, 2021 Admission HPI Per Admitting Provider Christy hutton is a 81-year-old female with past medical history significant for idiopathic polyneuropathy who presents at the recommendation of her PCP for DVT. Patient saw primary care yesterday for swelling of her left leg, they ordered a Doppler of her leg that was performed this morning and revealed an extensive DVT, which prompted them to refer her to ED for further evaluation. Here she had a CTA which revealed a large thrombus present within the left main pulmonary artery distally with extension thrombus in the left upper lobe and left lower lobe pulmonary arteries. She has been hemodynamically stable since arrival, SPO2 >95% on room air (Oxymask use documented in error in ED vitals chart). She never had a blood clot before and denies family history of such. Had a skin cancer removed a year or so ago, but has no other skin there history and only notes a family history of cancer in her grandmother, who was 90 when she was diagnosed. She has been less active over the past few weeks, noting that she typically did physical activity 1-2 hours a day every day, up until the last few weeks when she had computer work to do at home and had not been as active as she usually is. He is not a smoker, not on any hormones, no recent surgeries. Discharge Data Allergies Allergy/AdvReac Type Severity Reaction Status Date / Time NARCOTIC ANALGESICS AdvReac Unknown DELIRIUM Uncoded 09/30/21 17:52 Consultations 10/01/21 14:05 ED Decision to Admit Stat Ordered Studies 10/01/21 11:57 CT angio chest PE protocol Stat Hospital Course (1) Pulmonary embolism: - Large thrombus present within the left main pulmonary artery distally with extension of thrombus into the left upper lobe and left lower lobe pulmonary arteries. Homogeneous perfusion is seen within the pulmonary arteries on the right. - Despite the clot burden, patient is hemodynamically stable and entirely asymptomatic aside from leg swelling and tightness-absolute no SOB, chest pain, palpitations. - Heparin gtt with bolus started in ED, however was started prior to coag labs being drawn--hold this until labs drawn and PT/INR, PTT at baseline. - So far, no real explanation for such--no cancer, not particularly sedentary however she has significantly decreased her activity level over the past few weeks. No personal or family history of blood/clotting disorders, no hormone use or tobacco use. - Given her age and this being her first VTE, do not think hypercoagulability panel would be worthwhile. - Could consider consulting vascular surgery for further recommendations regarding workup for potential etiology, however there will not be coverage until Monday, 10/04. - ? if left iliac artery could be compressing iliac vein and causing extensive clot burden at the level of iliac vein (Mosher Thurner syndrome)--I personally spoke with the agriculture laboratory technician who performed the ultrasound this AM. Clotburdn endd at the common femoral vein at the location where greater saphenous vein enters--iliac veins were scanned and no clot was ID'd superior to common femoral vein. (2) Left leg DVT: - Management as above. (3) Idiopathic polyneuropathy: - Patient takes a variety of supplements and vitamins for this, may continue as able based on hospital formulation. - Admit to PCU. - Heparin drip. - Full code. Discharge Plan Discharge Items Patient Disposition: Home - Self-Care Reason For Visit: PE Discharge Diagnosis: Pulmonary emboli Deep vein thrombosis Activity: As commented below Non-emergency contact: Primary Care Provider Call non-emergency contact if: you have any medication questions and your symptoms worsen Follow-up/Referrals: Teja Gaviria, [Primary Care Provider] - Diet: Heart Healthy Addtl Attending Provider Instructions: You were admitted to [facility] from October 01 - 2021 due to left leg swelling showing a large deep vein thrombosis and pulmonary emboli (blood clots in the arteries to your lungs). This was treated with intravenous heparin overnight and you will be switched to Xarelto on discharge. Please follow up with your primary care physician for refills of this as you will need treatment for 3-6 months (recommend the later due to size of clot burden). Ok to do light activity but no heavy exercise until hospital follow up. Pending Studies at Discharge: No Stand-Alone Forms: My [facility], Smoking Cessation Medications and DC Order Prescriptions: New rivaroxaban 15 mg (42)- 20 mg (9) tablets,dose pack See Rx Instructions .ROUTE .COMPLEX Qty: 51 RF: 0 Continued ascorbic acid (vitamin C) 1,000 mg tablet 1,000 mg PO DAILY RF: 0 cholecalciferol (vitamin D3) 50 mcg (2,000 unit) tablet 2,000 unit PO DAILY RF: 0 garlic [garlic oil] 1,000 mg capsule 2,000 mg PO DAILY RF: 0 potassium gluconate 550 mg (90 mg) tablet 550 mg PO DAILY RF: 0 selenium 1 ea PO DAILY RF: 0 vitamin B complex Tablet 1 tab PO DAILY RF: 0 kim (Zingiber officinalis) 250 mg capsule 250 mg PO DAILY RF: 0 lutein 20 mg tablet 20 mg PO DAILY RF: 0 omega-3 acid ethyl esters 1 gram capsule 1 g PO DAILY RF: 0 coenzyme Q10 100 mg Tablet 100 mg PO DAILY RF: 0 vitamin E 400 unit Tablet 400 unit PO DAILY RF: 0 magnesium 250 mg Tablet 250 mg PO DAILY RF: 0 turmeric 400 mg Capsule 400 mg PO DAILY RF: 0 lysine 500 mg Tablet 500 mg PO DAILY RF: 0 vitamin A 10,000 unit Tablet 10,000 unit PO Q OTHER DAY RF: 0 Discharge Orders: Discharge Order (Routine); Ordered 10/02/21 Ordered By: Augie Virgen/Other Patient Handouts: DVT Complications, Pulmonary Embolism Admission Data Admit Date/Time: 10/01/21 14:05 Attending Provider: Augie Harrington Admit Provider: Augie Harrington Primary Care Provider: Teja Gaviria Other Providers: Augie Harrington Other Interventions: Discharge Summary Assessment (RN) Last Done: 10/02/21 11:26 Coding Diagnoses Pulmonary embolism I26.99 Acute cor pulmonale presence: unspecified Chronicity: acute Pulmonary embolism type: unspecified Left leg DVT I82.402 Idiopathic polyneuropathy G60.9
== END 2021-10-02 12:32 | disposition home or self-care (01) ==
LOC: ED 11:40 → INTOOBSV 14:05 → 2E 14:05